=== PATIENT | female | born 2000 | race Caucasian/White ===

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

== ENCOUNTER 2018-08-07 09:19 | Emergency (ER) | payer OTHER, MEDICAID ==
[2018-08-07 10:46] VITALS: BP 118/69
--- NOTE | 2018-08-07 11:05 | EDM.PDOC ---
ED HPI GENERAL MEDICAL PROBLEM - General Chief Complaint: Respiratory Problem Stated Complaint: CONGESTED, BODY ACHES Time Seen by Provider: 08/07/18 10:50 Source of Information: Reports: Patient History Limitations: Reports: No Limitations - History of Present Illness INITIAL COMMENTS - FREE TEXT/NARRATIVE: 17-year-old female who was had a cough for 2 weeks, now becoming productive with intermittent fevers and generalized body aches. She's also had increased nasal congestion and drainage over the past several days. No shortness of breath. She's had occasional vomiting from the coughing. Moderate headache. 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 Musculoskeletal History: Reports: Other (See Below) Other Musculoskeletal History: 3 broken bones in right foot Psychiatric History: Reports: Anxiety, Depression, Panic Attack Dermatologic History: Reports: Other (See Below) Other Dermatologic History: patches on upper arms of rash - Infectious Disease History Infectious Disease History: Reports: Chicken Pox - Past Surgical History HEENT Surgical History: Reports: Oral Surgery Cardiovascular Surgical History: Reports: None GI Surgical History: Reports: Appendectomy Female Surgical History: Reports: None Dermatological Surgical History: Reports: None Social & Family History - Family History Family Medical History: Noncontributory - Tobacco Use Smoking Status *Q: Current Every Day Smoker Years of Tobacco use: 8 Packs/Tins Daily: 1 Used Tobacco, but Quit: No Second Hand Smoke Exposure: Yes - Caffeine Use Caffeine Use: Reports: Energy Drinks - Alcohol Use Days Per Week of Alcohol Use: 0 - Recreational Drug Use Recreational Drug Use: No ED ROS GENERAL - Review of Systems Review Of Systems: See Below Constitutional: Reports: Fever, Chills, Malaise HEENT: Reports: Rhinitis, Throat Pain. Denies: Ear Pain Respiratory: Reports: Shortness of Breath, Cough, Sputum Cardiovascular: Reports: Chest Pain (With coughing) GI/Abdominal: Reports: Nausea, Vomiting Musculoskeletal: Reports: Muscle Pain Skin: Denies: Rash Neurological: Reports: Headache ED EXAM, GENERAL - Physical Exam Exam: See Below Exam Limited By: No Limitations General Appearance: Alert, No Apparent Distress Eye Exam: Bilateral Eye: EOMI Ears: Normal TMs (Scars from past tympanoplasty, no acute findings) Throat/Mouth: Normal Inspection Head: Atraumatic Neck: Other (Submandibular areas are tender to palpation but not swollen). No: Lymphadenopathy (R), Lymphadenopathy (L) Respiratory/Chest: No Respiratory Distress, Rhonchi (A few expiratory rhonchi wheezes are heard with coughing otherwise clear) Neurological: Alert, Oriented Psychiatric: Normal Affect, Normal Mood Skin Exam: Warm, Dry Course - Vital Signs Last Recorded V/S: Last Vital Signs Temp 97.3 F 08/07/18 10:46 Pulse 87 08/07/18 10:46 Resp 16 08/07/18 10:46 BP 118/69 08/07/18 10:46 Pulse Ox 100 08/07/18 10:46 - Re-Assessments/Exams Free Text/Narrative Re-Assessment/Exam: 08/07/18 11:04 This patient has a lingering bronchitis which may be turning atypical resident viral. Because of the 2-3 week history of symptoms she'll be covered for atypicals with Zithromax and given some Tessalon Perles for cough suppression. A note for work for today and tomorrow, rest and fluids and recheck in 3-4 days if not improving satisfactorily. Departure - Departure Time of Disposition: 11:17 Disposition: Home, Self-Care 01 Condition: Good Clinical Impression: Bronchitis - Discharge Information Instructions: Acute Bronchitis, Adult, [id number] Referrals: Guerita Muñoz CNM [Primary Care Provider] - Forms: ED Department Discharge Care Plan Goals: Take medications as prescribed, get rest and fluids for the next couple of days and increase activity as tolerated. Consider rechecking in 3-4 days if not improving satisfactorily.
== END 2018-08-07 11:18 | disposition home or self-care (01) ==
LOC: JP.ED 09:19
DX: J40 Bronchitis, not specified as acute or chronic (principal); F17.210 Nicotine dependence, cigarettes, uncomplicated; Z88.8 Allergy status to other drugs, medicaments and biological substances
CPT/HCPCS: 99283

== ENCOUNTER 2019-06-11 13:58 | Emergency (ER) | payer OTHER, MEDICAID ==
[2019-06-11 14:35] VITALS: BP 135/81; PULSE 113
--- NOTE | 2019-06-11 15:49 | EDM.PDOC ---
ED HPI GENERAL MEDICAL PROBLEM - General Chief Complaint: ALGOLOGIST Problem Stated Complaint: HEAVY MENSTRUEL BLEEDING Time Seen by Provider: 06/11/19 14:46 Source of Information: Reports: Patient History Limitations: Reports: No Limitations - History of Present Illness INITIAL COMMENTS - FREE TEXT/NARRATIVE: states she has had heavy bleeding for one year Off depo and had PIE[facility] WORK CHECKER visit in [place]; told she has ovarian cyst and it would resolve Hasn't followed up Still having bleeding No control; she states she can't be on it for other reasons. 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 Musculoskeletal History: Reports: Other (See Below) Other Musculoskeletal History: 3 broken bones in right foot Psychiatric History: Reports: Anxiety, Depression, Panic Attack Dermatologic History: Reports: Other (See Below) Other Dermatologic History: patches on upper arms of rash - Infectious Disease History Infectious Disease History: Reports: Chicken Pox - Past Surgical History HEENT Surgical History: Reports: Oral Surgery GI Surgical History: Reports: Appendectomy Social & Family History - Family History Family Medical History: Noncontributory - Tobacco Use Smoking Status *Q: Current Every Day Smoker Years of Tobacco use: 3 Packs/Tins Daily: 0.5 - Caffeine Use Caffeine Use: Reports: None - Recreational Drug Use Recreational Drug Use: Yes Recreational Drug Type: Reports: Marijuana/Hashish Recreational Drug Use Frequency: Socially ED ROS GENERAL - Review of Systems Review Of Systems: See Below Constitutional: Reports: Weakness, Other (lightheadedness on occasion) Respiratory: Reports: No Symptoms Cardiovascular: Reports: No Symptoms GI/Abdominal: Reports: Abdominal Pain Musculoskeletal: Reports: No Symptoms Skin: Reports: No Symptoms ED EXAM, GENERAL - Physical Exam Exam: See Below Exam Limited By: No Limitations General Appearance: Alert, WD/WN, No Apparent Distress Head: Atraumatic, Normocephalic Neck: Normal Inspection, Full Range of Motion Respiratory/Chest: Lungs Clear, Normal Breath Sounds Cardiovascular: Regular Rate, Rhythm GI/Abdominal: Normal Bowel Sounds, Soft, Non-Tender (Female) Exam: Vaginal Bleeding (as stated) Back Exam: Normal Inspection Extremities: Normal Inspection, Normal Range of Motion Neurological: Alert, Oriented, CN II-XII Intact Psychiatric: Normal Affect Skin Exam: Warm, Dry, Intact, Normal Color Course - Vital Signs Last Recorded V/S: Last Vital Signs Temp 96.8 F 06/11/19 14:41 Pulse 113 H 06/11/19 14:41 Resp 16 06/11/19 14:41 BP 135/81 06/11/19 14:41 Pulse Ox 100 06/11/19 14:41 - Orders/Labs/Meds Labs: Laboratory Tests 06/11/19 06/11/19 06/11/19 Range/Units 15:02 15:02 15:03 WBC 9.3 (4.5-11.0) K/uL RBC 4.97 (3.30-5.50) M/uL Hgb 15.0 (12.0-15.0) g/dL Hct 46.2 (36.0-48.0) % MCV 93 (80-98) fL MCH 30 (27-31) pg MCHC 33 (32-36) % Plt Count 233 (150-400) K/uL Neut % (Auto) 61 (36-66) % Lymph % (Auto) 23 L (24-44) % [place] % (Auto) 14 H (2-6) % Eos % (Auto) 1 L (2-4) % Baso % (Auto) 0 (0-1) % Sodium (140-148) mmol/L Potassium (3.6-5.2) mmol/L Chloride (100-108) mmol/L Carbon Dioxide (21-32) mmol/L Anion Gap (5.0-14.0) mmol/L BUN (7-18) mg/dL Creatinine (0.6-1.0) mg/dL Est Cr Clr Drug Dosing mL/min Estimated GFR (MDRD) (>60) Glucose (74-106) mg/dL Calcium (8.5-10.1) mg/dL Iron (50-170) ug/dL TIBC (250-450) ug/dl % Saturation (20-55) % Total Bilirubin (0.2-1.0) mg/dL AST (15-37) U/L ALT (12-78) U/L Alkaline Phosphatase (46-116) U/L Total Protein (6.4-8.2) g/dL Albumin (3.4-5.0) g/dL Globulin (2.3-3.5) g/dL Albumin/Globulin Ratio (1.2-2.2) Urine Color Red Urine Appearance Cloudy Urine pH 8.0 (4.5-8.0) Ur Specific [place] 1.015 (1.008-1.030) Urine Protein Trace (NEGATIVE) mg/dL Urine Glucose (UA) Normal (NEGATIVE) mg/dL Urine Ketones Negative (NEGATIVE) mg/dL Urine Occult Blood Large (NEGATIVE) Urine Nitrite Negative (NEGATIVE) Urine Bilirubin Negative (NEGATIVE) Urine Urobilinogen Normal (NORMAL) mg/dL Ur Leukocyte Esterase Trace (NEGATIVE) Urine RBC Packed H (0-5) Urine WBC 0-5 (0-5) Ur Epithelial Cells Moderate Amorphous Sediment Not seen Urine Bacteria Few Urine Mucus Not seen Urine HCG, Qual Negative 06/11/19 06/11/19 Range/Units 15:03 15:03 WBC (4.5-11.0) K/uL RBC (3.30-5.50) M/uL Hgb (12.0-15.0) g/dL Hct (36.0-48.0) % MCV (80-98) fL MCH (27-31) pg MCHC (32-36) % Plt Count (150-400) K/uL Neut % (Auto) (36-66) % Lymph % (Auto) (24-44) % [place] % (Auto) (2-6) % Eos % (Auto) (2-4) % Baso % (Auto) (0-1) % Sodium 139 L (140-148) mmol/L Potassium 3.9 (3.6-5.2) mmol/L Chloride 103 (100-108) mmol/L Carbon Dioxide 27 (21-32) mmol/L Anion Gap 12.9 (5.0-14.0) mmol/L BUN 12 (7-18) mg/dL Creatinine 0.8 (0.6-1.0) mg/dL Est Cr Clr Drug Dosing 96.86 mL/min Estimated GFR (MDRD) > 60 (>60) Glucose 86 (74-106) mg/dL Calcium 9.5 (8.5-10.1) mg/dL Iron 83 (50-170) ug/dL TIBC 419 (250-450) ug/dl % Saturation 20 (20-55) % Total Bilirubin 0.6 (0.2-1.0) mg/dL AST 27 (15-37) U/L ALT 40 D (12-78) U/L Alkaline Phosphatase 144 H (46-116) U/L Total Protein 7.8 (6.4-8.2) g/dL Albumin 3.9 (3.4-5.0) g/dL Globulin 3.9 H (2.3-3.5) g/dL Albumin/Globulin Ratio 1.0 L (1.2-2.2) Urine Color Urine Appearance Urine pH (4.5-8.0) Ur Specific [place] (1.008-1.030) Urine Protein (NEGATIVE) mg/dL Urine Glucose (UA) (NEGATIVE) mg/dL Urine Ketones (NEGATIVE) mg/dL Urine Occult Blood (NEGATIVE) Urine Nitrite (NEGATIVE) Urine Bilirubin (NEGATIVE) Urine Urobilinogen (NORMAL) mg/dL Ur Leukocyte Esterase (NEGATIVE) Urine RBC (0-5) Urine WBC (0-5) Ur Epithelial Cells Amorphous Sediment Urine Bacteria Urine Mucus Urine HCG, Qual - Re-Assessments/Exams Free Text/Narrative Re-Assessment/Exam: 06/11/19 15:58 Reviewed lab with patient She is resting comfortably Recheck of pulse, 86. Discussed with her I would recommend she Follow up with [employer] She is requesting a referral to [place] because "everyone is giving her the run around". Understand her frustration; referral was placed. Departure - Departure Time of Disposition: 15:46 Disposition: Home, Self-Care 01 Condition: Good Clinical Impression: Vaginal bleeding - Discharge Information *PRESCRIPTION DRUG MONITORING PROGRAM REVIEWED*: Not Applicable *COPY OF PRESCRIPTION DRUG MONITORING REPORT IN PATIENT EMILY: Not Applicable Instructions: Dysmenorrhea, [id number], Dysfunctional Uterine Bleeding Referrals: Guerita Muñoz CNM [Primary Care Provider] - Forms: ED Department Discharge Additional Instructions: Someone will call you from [facility] for follow up /appt schedule for OBGYN Change positions slowly Drink plenty of water. Call with questions. - Problem List & Annotations (1) Vaginal bleeding SNOMED Code(s): 413950264, [id number] Code(s): N93.9 - ABNORMAL UTERINE AND VAGINAL BLEEDING, UNSPECIFIED Status : Acute Priority: Low
== END 2019-06-11 16:04 | disposition home or self-care (01) ==
LOC: JP.ED 13:58
DX: N93.9 Abnormal uterine and vaginal bleeding, unspecified (principal); R42 Dizziness and giddiness; R53.1 Weakness; F17.210 Nicotine dependence, cigarettes, uncomplicated; Z88.1 Allergy status to other antibiotic agents
CPT/HCPCS: 36415; 80053; 81001; 81025; 83550; 85025; 99283; 99284

== ENCOUNTER 2020-06-04 17:05 | Emergency (ER) | payer MEDICAID, OTHER ==
[2020-06-04] MEDS ORDERED: hydrOXYzine HCL 100 MG/2 ML SDV IM ONE (17:37)
--- NOTE | 2020-06-04 17:39 | EDM.PDOC ---
ED HPI GENERAL MEDICAL PROBLEM - General Chief Complaint: Bite:Animal, Insect Stated Complaint: STUNG BY HORNETS Time Seen by Provider: 06/04/20 17:25 Source of Information: Reports: Patient, Old Records, RN History Limitations: Reports: No Limitations - History of Present Illness INITIAL COMMENTS - FREE TEXT/NARRATIVE: 19 yo female presents with a reported 40 stings by hornets earlier today. Feels itchy all over. Drove herself to the ER. No self tx. No pHx of bee sting allergy. Onset: Today, Sudden Onset Date: 06/04/20 Duration: Minutes: Location: Reports: Abdomen, Back, Lower Extremity, Left, Lower Extremity, Right Quality: Reports: Other (itching) Severity: Moderate Improves with: Reports: None Worsens with: Reports: None Context: Reports: Trauma (multiple bee stings) Associated Symptoms: Reports: No Other Symptoms Treatments JAVA DEVELOPER: Reports: Other (see below) (none) - Related Data Allergies Allergy/AdvReac Type Severity Reaction Status Date / Time neomycin Allergy Swelling Verified 06/04/20 17:24 Home Meds: Home Meds NK [No Known Home Meds] 06/11/19 [History] Past Medical History HEENT History: Reports: Impaired Vision Cardiovascular History: Reports: Heart Murmur Gastrointestinal History: Reports: GERD Genitourinary History: Reports: UTI, Recurrent 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 Musculoskeletal History: Reports: Other (See Below) Other Musculoskeletal History: 3 broken bones in right foot Psychiatric History: Reports: Anxiety, Depression, Panic Attack Dermatologic History: Reports: Other (See Below) Other Dermatologic History: patches on upper arms of rash - Infectious Disease History Infectious Disease History: Reports: Chicken Pox - Past Surgical History Head Surgeries/Procedures: Reports: None HEENT Surgical History: Reports: Oral Surgery Cardiovascular Surgical History: Reports: None GI Surgical History: Reports: Appendectomy Female Surgical History: Reports: None Musculoskeletal Surgical History: Reports: None Dermatological Surgical History: Reports: None Social & Family History - Family History Family Medical History: Noncontributory - Tobacco Use Smoking Status *Q: Current Every Day Smoker Years of Tobacco use: 10 Packs/Tins Daily: 0.5 Used Tobacco, but Quit: No Second Hand Smoke Exposure: No - Caffeine Use Caffeine Use: Reports: None - Recreational Drug Use Recreational Drug Use: No ED ROS GENERAL - Review of Systems Review Of Systems: See Below Constitutional: Reports: No Symptoms HEENT: Reports: No Symptoms Respiratory: Reports: No Symptoms Cardiovascular: Reports: No Symptoms Endocrine: Reports: No Symptoms GI/Abdominal: Reports: No Symptoms : Reports: No Symptoms Musculoskeletal: Reports: No Symptoms Skin: Reports: Pruritis, Erythema. Denies: Urticaria Neurological: Reports: No Symptoms ED EXAM, ANIMAL BITE - Physical Exam Exam: See Below Exam Limited By: No Limitations General Appearance: Alert, WD/WN, No Apparent Distress Eye Exam: Bilateral Eye: Normal Inspection Ears: Normal External Exam, Normal Canal, Hearing Grossly Normal, Normal TMs Nose: Normal Inspection, No Blood Throat/Mouth: Normal Inspection, Normal Lips, Normal Oropharynx, Normal Voice, No Airway Compromise Head: Atraumatic, Normocephalic Neck: Normal Inspection Respiratory/Chest: No Respiratory Distress, Lungs Clear, Normal Breath Sounds, No Accessory Muscle Use Cardiovascular: Regular Rate, Rhythm, No Edema, Tachycardia Extremities: Normal Inspection Neurological: Alert, Oriented, CN II-XII Intact, Normal Cognition, No Motor/Sensory Deficits Psychiatric: Normal Affect, Normal Mood Skin Exam: Normal Color, Warm/Dry, Other (some mild erythema, no hives or induration noted. ) Lymphadenopathy: Bilateral: No Adenopathy Course - Vital Signs Last Recorded V/S: Last Vital Signs Temp 37.1 C 06/04/20 17:44 Pulse 113 H 06/04/20 17:44 Resp 16 06/04/20 17:44 BP 117/75 06/04/20 17:44 Pulse Ox 96 06/04/20 17:44 - Orders/Labs/Meds Meds: Medications Discontinued Medications Generic Name Dose Route Start Last Admin Trade Name Freq PRN Reason Stop Dose Admin Hydroxyzine HCl 50 mg 06/04/20 17:37 06/04/20 17:43 Vistaril IM 06/04/20 17:38 50 mg ONETIME ONE Administration Departure - Departure Time of Disposition: 18:20 Disposition: Home, Self-Care 01 Condition: Good Clinical Impression: Bee sting Qualifiers: Encounter type: initial encounter Injury intent: undetermined intent Qualified Code(s): T63.444A - Toxic effect of venom of bees, undetermined, initial encounter - Discharge Information *PRESCRIPTION DRUG MONITORING PROGRAM REVIEWED*: Not Applicable *COPY OF PRESCRIPTION DRUG MONITORING REPORT IN PATIENT EMILY: Not Applicable Instructions: Insect Bite, Adult, [id number] Referrals: PCP,None [Primary Care Provider] - Forms: ED Department Discharge Additional Instructions: Take diphenhydramine 50 mg every 6 hrs as needed for continued symptoms. Recheck if worse. Sepsis Event Note (ED) - Focused Exam Vital Signs: Vital Signs Temp Pulse Resp BP Pulse Ox 06/04/20 17:44 37.1 C 113 H 16 117/75 96
[2020-06-04 17:45] VITALS: BP 117/75; PULSE 113
== END 2020-06-04 18:04 | disposition home or self-care (01) ==
LOC: JP.ED 17:05
DX: T63.441A Toxic effect of venom of bees, accidental (unintentional), initial encounter (principal); F17.210 Nicotine dependence, cigarettes, uncomplicated; Z88.1 Allergy status to other antibiotic agents
CPT/HCPCS: 96372; 99282; J3410

== ENCOUNTER 2020-09-18 09:02 | Emergency (ER) | payer SELFPAY ==
[2020-09-18 09:28] VITALS: BP 107/72; PULSE 87
--- NOTE | 2020-09-18 10:08 | EDM.PDOC ---
ED HPI GENERAL MEDICAL PROBLEM - General Chief Complaint: Lower Extremity Injury/Pain Stated Complaint: INFECTION ON RIGHT FOOT Time Seen by Provider: 09/18/20 10:04 Source of Information: Reports: Patient History Limitations: Reports: Other (incomplete records) - History of Present Illness INITIAL COMMENTS - FREE TEXT/NARRATIVE: 20 yo female was see in [facility] about 3 weeks ago after possibly being impaled by a toothpick in her carpet. She was given an antibiotic and told if she didn't improve to come to the ER. She says she has very slowly been getting worse since then. Had TMP/SMZ for her infection earlier. Onset: Gradual Onset Date: 08/28/20 Duration: Week(s): (3), Getting Worse Location: Reports: Lower Extremity, Right Quality: Reports: Dull Severity: Mild Improves with: Reports: None Worsens with: Reports: Other (time) Context: Reports: Trauma Associated Symptoms: Reports: No Other Symptoms Treatments DIPPER OPERATOR: Reports: Other (see below) ("an antibiotic") - Related Data Allergies Allergy/AdvReac Type Severity Reaction Status Date / Time neomycin Allergy Swelling Verified 06/04/20 17:24 Home Meds: Home Meds cephALEXin [Cephalexin] 500 mg PO Q6H #40 capsule 09/18/20 [Rx] Past Medical History HEENT History: Reports: Impaired Vision Cardiovascular History: Reports: Heart Murmur Gastrointestinal History: Reports: GERD Genitourinary History: Reports: UTI, Recurrent 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 CLERK History: Reports: 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 Musculoskeletal History: Reports: Other (See Below) Other Musculoskeletal History: 3 broken bones in right foot Psychiatric History: Reports: Anxiety, Depression, Panic Attack Dermatologic History: Reports: Other (See Below) Other Dermatologic History: patches on upper arms of rash - Infectious Disease History Infectious Disease History: Reports: Chicken Pox - Past Surgical History Head Surgeries/Procedures: Reports: None HEENT Surgical History: Reports: Oral Surgery Cardiovascular Surgical History: Reports: None GI Surgical History: Reports: Appendectomy Female Surgical History: Reports: None Musculoskeletal Surgical History: Reports: None Dermatological Surgical History: Reports: None Social & Family History - Family History Family Medical History: No Pertinent Family History - Caffeine Use Caffeine Use: Reports: None Review of Systems - Review of Systems Review Of Systems: See Below Constitutional: Reports: No Symptoms Musculoskeletal: Reports: Foot Pain (R foot) Skin: Reports: Erythema (R lateral foot) Neurological: Reports: No Symptoms ED EXAM, GENERAL - Physical Exam Exam: See Below Exam Limited By: No Limitations General Appearance: Alert, WD/WN, No Apparent Distress Eye Exam: Bilateral Eye: Normal Inspection Ears: Normal External Exam, Normal Canal, Hearing Grossly Normal Nose: Normal Inspection, No Blood Throat/Mouth: Normal Voice, No Airway Compromise Head: Atraumatic, Normocephalic Neck: Normal Inspection Respiratory/Chest: No Respiratory Distress Extremities: Redness (and induration laterally) Neurological: Alert, Oriented, CN II-XII Intact, Normal Cognition, No Motor/Sensory Deficits Psychiatric: Normal Affect, Normal Mood Skin Exam: Warm, Dry, Intact, No Rash, Erythema (R lateral foot) Course - Vital Signs Last Recorded V/S: Last Vital Signs Temp 36.7 C 09/18/20 09:10 Pulse 87 09/18/20 09:10 Resp 16 09/18/20 09:10 BP 107/72 09/18/20 09:10 Pulse Ox 98 09/18/20 09:10 - Radiology Interpretation Free Text/Narrative:: R foot X-ray-neg Departure - Departure Time of Disposition: 11:00 Disposition: Home, Self-Care 01 Condition: Fair Clinical Impression: Right foot infection - Discharge Information *PRESCRIPTION DRUG MONITORING PROGRAM REVIEWED*: No *COPY OF PRESCRIPTION DRUG MONITORING REPORT IN PATIENT EMILY: No Referrals: PCP,None [Primary Care Provider] - Forms: ED Department Discharge Additional Instructions: Heel walking. Soak foot in warm water several times per day. Acetaminophen up to 1000 mg every 6 hrs as needed for pain relief. Take cephalexin every 6 hrs starting right away, your Rx went to [facility]. Someone will be calling you with a podiatry appt soon for further evaluation and treatment. Sepsis Event Note (ED) - Focused Exam Vital Signs: Vital Signs Temp Pulse Resp BP Pulse Ox 09/18/20 09:10 36.7 C 87 16 107/72 98
--- NOTE | 2020-09-18 10:37 | CR ---
FOOT RIGHT 3 views CLINICAL HISTORY:Question foreign body FINDINGS:There is some soft tissue swelling over the lateral aspect of the fifth metatarsal region. No radiopaque foreign body is identified there is no fracture or osseous lesion seen. Impression: Negative for radiopaque foreign body Mild soft tissue swelling over the lateral forefoot
== END 2020-09-18 11:45 | disposition home or self-care (01) ==
LOC: JP.ED 09:02
DX: L08.9 Local infection of the skin and subcutaneous tissue, unspecified (principal); Z88.1 Allergy status to other antibiotic agents
CPT/HCPCS: 73630-26-RT; 73630-RT; 99283-25

== ENCOUNTER 2021-07-21 06:59 | Observation (INO) | payer MEDICAID ==
[2021-07-21] MEDS ORDERED: Misoprostol 50 MCG (1/2 of 100 MCG) Tab VAG ONE ×2 (07:15→12:00)
--- NOTE | 2021-07-21 08:23 | PCM.LDHP ---
L&D History of Present Illness - General Date of Service: 07/21/21 (Elective Induction/cervical ripening) Admit Problem/Dx: Admission Diagnosis/Problem Admission Diagnosis/Problem Source of Information: Patient History Limitations: Reports: No Limitations - History of Present Illness Introduction:: 07/21/21 Alexandra is a 20 year old female at 39 weeks 2 days gestation. She is a here for elective induction/cevical ripening. Her medical history includes smoking, history of chlamydia, and depression and anxiety. This has included adequate care and she was diagnosed with COVID 19 on July 07. Labs: ABO: 0pos GBS: neg Rub immune Positive COVID since 07/07/21 Timing/Duration: Reports: other (no contractions) - Related Data Allergies/Adverse Reactions: Allergies Allergy/AdvReac Type Severity Reaction Status Date / Time neomycin Allergy Swelling Verified 07/21/21 07:08 Home Medications: Home Meds Pnv No.95/Ferrous Fum/Folic AC [ Caplet] 1 tab PO DAILY 06/12/21 [History] Omeprazole 20 mg PO ACBREAKFAST 07/21/21 [History] valACYclovir HCl [valACYclovir] 1,000 mg PO DAILY 07/21/21 [History] Past Medical History HEENT History: Reports: Impaired Vision Cardiovascular History: Reports: Heart Murmur Gastrointestinal History: Reports: GERD Genitourinary History: Reports: UTI, Recurrent 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: , Spontaneous : 3 (2 SAB) Para: 0 LMP (Approximate): (SUSI: 07/26/21) Musculoskeletal History: Reports: Other (See Below) Other Musculoskeletal History: 3 broken bones in right foot Psychiatric History: Reports: Anxiety, Depression, Panic Attack Hematologic History: Reports: None Dermatologic History: Reports: Other (See Below) Other Dermatologic History: patches on upper arms of rash - Infectious Disease History Infectious Disease History: Reports: Chicken Pox - Past Surgical History Head Surgeries/Procedures: Reports: None HEENT Surgical History: Reports: Oral Surgery Cardiovascular Surgical History: Reports: None GI Surgical History: Reports: Appendectomy Female Surgical History: Reports: None Musculoskeletal Surgical History: Reports: None Other Musculoskeletal Surgeries/Procedures:: broken bones in foot Dermatological Surgical History: Reports: None Social & Family History - Family History Family Medical History: No Pertinent Family History - Caffeine Use Caffeine Use: Reports: None H&P Review of Systems - Review of Systems: Review Of Systems: See Below General: Reports: No Symptoms HEENT: Reports: No Symptoms Pulmonary: Reports: No Symptoms Cardiovascular: Reports: No Symptoms Gastrointestinal: Reports: No Symptoms Genitourinary: Reports: No Symptoms Musculoskeletal: Reports: No Symptoms Skin: Reports: No Symptoms Psychiatric: Reports: No Symptoms Neurological: Reports: No Symptoms Hematologic/Lymphatic: Reports: No Symptoms Immunologic: Reports: No Symptoms L&D Exam - Exam Exam: See Below - Vital Signs Vital Signs: Last Vital Signs Temp 97.1 F 07/21/21 07:15 Pulse 114 H 07/21/21 07:15 Resp 18 07/21/21 07:15 BP 127/79 07/21/21 07:15 Pulse Ox 97 07/21/21 07:15 - OB Specific Contraction Intensity: Mild Movement: Active Heart Tones: Present Heart Tones per Min: 140 Heart Rate (FHR) Variability: Moderate (6-25 bpm) Presentation: Vertex Estimated Weight: 7-8lbs - Mcclain Score Mcclain Score Cervix Position: Midposition Mcclain Score Consistency: Soft Mcclain Score Effacement: 31-50% Mcclain Score Dilation: 1-2 cm Mcclain Score Infant's Station: -2 Mcclain Score Total: 6 - Exam General: Alert, Oriented HEENT: PERRLA, Conjunctiva Clear, EOMI, Hearing Intact, Mucosa Moist & [place], Nares Patent Neck: Supple, Trachea Midline Lungs: Normal Respiratory Effort Cardiovascular: Regular Rate, Regular Rhythm GI/Abdominal Exam: Soft Rectal Exam: Normal Rectal Tone Genitourinary: Normal external exam, Cervical dilitation, Enlarged uterus Back Exam: Full Range of Motion Extremities: Normal Inspection, Normal Range of Motion, No Pedal Edema Skin: Warm, Dry, Intact Neurological: Cranial Nerves Intact Psychiatric: Alert, Normal Affect, Normal Mood - Patient Data Lab Results Last 24 hrs: Laboratory Results - last 24 hr 07/21/21 07/21/21 07/21/21 Range/Units 07:16 07:18 07:18 WBC 11.2 H (4.5-11.0) K/uL RBC 4.17 (3.30-5.50) M/uL Hgb 12.3 D (12.0-15.0) g/dL Hct 36.8 (36.0-48.0) % MCV 88 (80-98) fL MCH 30 (27-31) pg MCHC 33 (32-36) % Plt Count 248 (150-400) K/uL Neut % (Auto) 67.6 H (36-66) % Lymph % (Auto) 25.2 (24-44) % Dent % (Auto) 6.1 H (2-6) % Eos % (Auto) 0.7 L (2-4) % Baso % (Auto) 0.4 (0-1) % Urine Color Yellow (YELLOW) Urine Appearance Cloudy A (CLEAR) Urine pH 6.0 (5.0-8.0) Ur Specific [place] >= 1.030 (1.008-1.030) Urine Protein Negative (NEGATIVE) mg/dL Urine Glucose (UA) Negative (NEGATIVE) mg/dL Urine Ketones Negative (NEGATIVE) mg/dL Urine Occult Blood Negative (NEGATIVE) Urine Nitrite Negative (NEGATIVE) Urine Bilirubin Negative (NEGATIVE) Urine Urobilinogen 0.2 (0.2-1.0) EU/dL Ur Leukocyte Esterase Negative (NEGATIVE) Urine RBC 0-5 (0-5) Urine WBC Not seen (0-5) Ur Epithelial Cells Many Amorphous Sediment Rare Urine Bacteria Many Urine Mucus Many Urine Opiates Screen Negative (NEGATIVE) Ur Oxycodone Screen Negative (NEGATIVE) Urine Methadone Screen Negative (NEGATIVE) Ur Propoxyphene Screen Negative (NEGATIVE) Ur Barbiturates Screen Negative (NEGATIVE) Ur Tricyclics Screen Negative (NEGATIVE) Ur Phencyclidine Scrn Negative (NEGATIVE) Ur Amphetamine Screen Negative (NEGATIVE) U Methamphetamines Scrn Negative (NEGATIVE) Urine MDMA Screen Negative (NEGATIVE) U Benzodiazepines Scrn Negative (NEGATIVE) U Cocaine Metab Screen Negative (NEGATIVE) U Marijuana (THC) Screen Negative (NEGATIVE) SARS CoV-2 RNA Rapid BECCA 07/21/21 Range/Units 07:39 WBC (4.5-11.0) K/uL RBC (3.30-5.50) M/uL Hgb (12.0-15.0) g/dL Hct (36.0-48.0) % MCV (80-98) fL MCH (27-31) pg MCHC (32-36) % Plt Count (150-400) K/uL Neut % (Auto) (36-66) % Lymph % (Auto) (24-44) % Dent % (Auto) (2-6) % Eos % (Auto) (2-4) % Baso % (Auto) (0-1) % Urine Color (YELLOW) Urine Appearance (CLEAR) Urine pH (5.0-8.0) Ur Specific [place] (1.008-1.030) Urine Protein (NEGATIVE) mg/dL Urine Glucose (UA) (NEGATIVE) mg/dL Urine Ketones (NEGATIVE) mg/dL Urine Occult Blood (NEGATIVE) Urine Nitrite (NEGATIVE) Urine Bilirubin (NEGATIVE) Urine Urobilinogen (0.2-1.0) EU/dL Ur Leukocyte Esterase (NEGATIVE) Urine RBC (0-5) Urine WBC (0-5) Ur Epithelial Cells Amorphous Sediment Urine Bacteria Urine Mucus Urine Opiates Screen (NEGATIVE) Ur Oxycodone Screen (NEGATIVE) Urine Methadone Screen (NEGATIVE) Ur Propoxyphene Screen (NEGATIVE) Ur Barbiturates Screen (NEGATIVE) Ur Tricyclics Screen (NEGATIVE) Ur Phencyclidine Scrn (NEGATIVE) Ur Amphetamine Screen (NEGATIVE) U Methamphetamines Scrn (NEGATIVE) Urine MDMA Screen (NEGATIVE) U Benzodiazepines Scrn (NEGATIVE) U Cocaine Metab Screen (NEGATIVE) U Marijuana (THC) Screen (NEGATIVE) SARS CoV-2 RNA Rapid BECCA Positive H Result Diagrams: 07/21/21 07:16 - Problem List (1) Elective induction of labor planned SNOMED Code(s): 000656271 ICD Code: AVA5360 - Status: Acute Current Visit: Yes (2) Tobacco consumption SNOMED Code(s): 462364826 ICD Code: Z72.0 - TOBACCO USE Status: Acute Current Visit: Yes (3) SNOMED Code(s): 29891688 ICD Code: Z34.90 - ENCNTR FOR SUPRVSN OF NORMAL , UNSP, UNSP TRIMESTER Status: Acute Current Visit: Yes Qualifiers: Weeks of gestation: 39 weeks Qualified Code(s): Z3A.39 - 39 weeks gestation of (4) COVID-19 affecting in third trimester SNOMED Code(s): 023086056, 591690235 ICD Code: O98.513 - OTHER VIRAL DISEASES COMPLICATING , THIRD TRIMESTER; U07.1 - COVID-19 Status: Acute Current Visit: Yes Problem List Initiated/Reviewed/Updated: Yes Assessment/Plan Comment:: 07/21/21 Assessment: 20y/o 39w 2 days here for elective induction 2 weeks post COVID infection, feels well overall today Mcclain score of 6 Category 1 FHT, no contractions Platelets 248 this am and hemoglobin 12.3 GBS status is negative Plan: Cytotec vaginally X2 doses Continue to monitor FHT Encourage oral hydration and nutrition Encourage ambulation and movement Reassess mcclain score after cytotec doses
[2021-07-21] MEDS ORDERED: Sodium Chloride 0.9% 10 ML Syringe FLUSH PRN (08:35)
--- NOTE | 2021-07-21 12:38 | PCM.PNLD ---
Labor Progress Note - VS & Meds Vital Signs: Last Vital Signs Temp 97.1 F 07/21/21 07:15 Pulse 91 07/21/21 10:18 Resp 18 07/21/21 07:15 BP 127/68 07/21/21 10:18 Pulse Ox 96 07/21/21 09:11 Active Medications: Current Medications Sodium Chloride (Sodium Chloride 0.9% 10 Ml Syringe) 10 ml FLUSH ASDIRECTED PRN PRN Reason: Keep Vein Open Discontinued Medications Misoprostol (Misoprostol 50 Mcg (1/2 Of 100 Mcg) Tab) 50 mcg VAG ONETIME ONE Stop: 07/21/21 07:16 Last Admin: 07/21/21 08:08 Dose: 50 mcg Documented by: Misoprostol (Misoprostol 50 Mcg (1/2 Of 100 Mcg) Tab) 50 mcg VAG ONETIME ONE Stop: 07/21/21 12:01 Last Admin: 07/21/21 12:21 Dose: 50 mcg Documented by: - Uterine Contractions Uterine Monitoring Mode: External [place] Contraction Frequency (min): 3 - 6 Contraction Duration (sec): 45 -80 Contraction Intensity: Mild Uterine Resting Tone: Soft - Monitoring Monitor Mode: External Ultrasound Heart Rate (FHR) Baseline: 145 Heart Rate (FHR) Variability: Moderate (6-25 bpm) Accelerations: Present, 15x15 Decelerations: None Strip Review: Category I - Vaginal Exam Dilation (cm): 0.5 Effacement (Percent): 50 Station: -2 Cervical Position: Posterior Sterile Vaginal Exam Performed By: Guerita Muñoz RN Vaginal Exam Comment: cytotec placed - Labor Progress (Free Text) Labor Progress: 07/21/21 Alexandra is due for a second dose of cytotec at this time. SVE for 0.5/50/-2. EFM shows a Category 1 tracing with occasional contractions without pattern. The pt is somewhat aware of these contractions and is comfortable. Plan: Monitor for active labor Reassess at 4:30/5pm If no cervical change, d/c to home and return another day.
[2021-07-21] MEDS ORDERED: Lactated Ringers 1,000 ML IV ONE ×2 (13:42→15:38)
--- NOTE | 2021-07-21 15:26 | US ---
BPP wo NST INDICATION: induction COMPARISON: None FINDINGS: Single live IUP heart rate: 149 BPM. Biophysical profile score: 6/8. A score of 0 was given for no gross body movements JUSTINE: 13.1 cm. IMPRESSION: Normal biophysical profile score of 6/8. There are no gross body movements
[2021-07-21] MEDS ORDERED: hydrOXYzine HCL 100 MG/2 ML SDV IM ONE (17:07)
--- NOTE | 2021-07-21 18:22 | PCM.PNLD ---
<Meera Vega - Last Filed: 07/21/21 18:16> Labor Progress Note - VS & Meds Vital Signs: Last Vital Signs Temp 97.1 F 07/21/21 12:30 Pulse 63 07/21/21 17:00 Resp 18 07/21/21 12:30 BP 137/92 H 07/21/21 17:00 Pulse Ox 97 07/21/21 16:59 Active Medications: Current Medications Sodium Chloride (Sodium Chloride 0.9% 10 Ml Syringe) 10 ml FLUSH ASDIRECTED PRN PRN Reason: Keep Vein Open Discontinued Medications Hydroxyzine HCl (Hydroxyzine Hcl 100 Mg/2 Ml Sdv) 100 mg IM ONETIME ONE Stop: 07/21/21 17:08 Last Admin: 07/21/21 17:23 Dose: 100 mg Documented by: Lactated Ringer's (Ringers, Lactated) 1,000 mls @ 999 mls/hr IV BOLUS ONE Stop: 07/21/21 14:42 Last Admin: 07/21/21 13:45 Dose: 999 mls/hr Documented by: Lactated Ringer's (Ringers, Lactated) 1,000 mls @ 999 mls/hr IV BOLUS ONE Stop: 07/21/21 16:38 Misoprostol (Misoprostol 50 Mcg (1/2 Of 100 Mcg) Tab) 50 mcg VAG ONETIME ONE Stop: 07/21/21 07:16 Last Admin: 07/21/21 08:08 Dose: 50 mcg Documented by: Misoprostol (Misoprostol 50 Mcg (1/2 Of 100 Mcg) Tab) 50 mcg VAG ONETIME ONE Stop: 07/21/21 12:01 Last Admin: 07/21/21 12:21 Dose: 50 mcg Documented by: - Uterine Contractions Uterine Monitoring Mode: External [place] Contraction Frequency (min): 1 - 2 Contraction Duration (sec): 30-70 Contraction Intensity: Tachysystole (at time of discharge, ctx have spaced to 2- 6min) Uterine Resting Tone: Soft - Monitoring Monitor Mode: External Ultrasound Heart Rate (FHR) Baseline: 150 Heart Rate (FHR) Variability: Moderate (6-25 bpm) Accelerations: Present, 15x15 Decelerations: None Strip Review: Category I - Vaginal Exam Dilation (cm): 1.0 Effacement (Percent): 70 Station: -2 Cervical Position: Midposition Sterile Vaginal Exam Performed By: charisma Moonife student Vaginal Exam Comment: no cervical change per CR - Labor Progress (Free Text) Labor Progress: 07/21/21 Alexandra is feeling her contractions more at this point, and EFM showed tachysystole for a period this afternoon. With a fluid bolus and vistaril, her contractions have spaced to every 2-6min. EFM is category 1. Her SVE is unchanged and she complains of some vaginal irritation, likely from cytotec and vaginal exams. UA was normal on admission. Assessment: Unchanged cervix after cervical ripening Category 1 EFM Plan: Vistaril to encourage rest at home with occasional contractions Plan to d/c home to rest Plan to return for eval and induction on 07/23/21 <Guerita Muñoz A - Last Filed: 07/21/21 18:46> Labor Progress Note - VS & Meds Vital Signs: Last Vital Signs Temp 97.1 F 07/21/21 12:30 Pulse 75 07/21/21 17:48 Resp 18 07/21/21 12:30 BP 132/88 07/21/21 17:48 Pulse Ox 97 07/21/21 16:59 Active Medications: Current Medications Sodium Chloride (Sodium Chloride 0.9% 10 Ml Syringe) 10 ml FLUSH ASDIRECTED PRN PRN Reason: Keep Vein Open Discontinued Medications Hydroxyzine HCl (Hydroxyzine Hcl 100 Mg/2 Ml Sdv) 100 mg IM ONETIME ONE Stop: 07/21/21 17:08 Last Admin: 07/21/21 17:23 Dose: 100 mg Documented by: Lactated Ringer's (Ringers, Lactated) 1,000 mls @ 999 mls/hr IV BOLUS ONE Stop: 07/21/21 14:42 Last Admin: 07/21/21 13:45 Dose: 999 mls/hr Documented by: Lactated Ringer's (Ringers, Lactated) 1,000 mls @ 999 mls/hr IV BOLUS ONE Stop: 07/21/21 16:38 Misoprostol (Misoprostol 50 Mcg (1/2 Of 100 Mcg) Tab) 50 mcg VAG ONETIME ONE Stop: 07/21/21 07:16 Last Admin: 07/21/21 08:08 Dose: 50 mcg Documented by: Misoprostol (Misoprostol 50 Mcg (1/2 Of 100 Mcg) Tab) 50 mcg VAG ONETIME ONE Stop: 07/21/21 12:01 Last Admin: 07/21/21 12:21 Dose: 50 mcg Documented by: - Labor Progress (Free Text) Labor Progress: I personally performed or re-performed the physical examination and medical decision making. I have verified all student documentation or findings, including history, physical exam and/or medical decision making. Guerita Muñoz APRN, CNM CFNP
[2021-07-21 18:23] VITALS: BP 132/88; PULSE 75
== END 2021-07-21 18:30 | disposition home or self-care (01) ==
LOC: JP.OBCHECK 06:59 → JP.OB 07:03 → JP.OBCHECK 08:10
PROVIDERS: ADMIT Nurse Practitioner Family; ATTEND Nurse Practitioner Family
DX: O98.513 Other viral diseases complicating pregnancy, third trimester (principal); U07.1 COVID-19; Z3A.39 39 weeks gestation of pregnancy
CPT/HCPCS: 36415; 76819; 80305; 81001; 85025; 87635; 96372; A9270; G0378; J3410; J7120; U0002

== ENCOUNTER 2021-07-22 09:12 | Inpatient (IN) | payer MEDICAID ==
[2021-07-22] MEDS ORDERED: Sodium Chloride 0.9% 10 ML Syringe FLUSH PRN (09:58)
--- NOTE | 2021-07-22 10:07 | PCM.LDHP ---
L&D History of Present Illness - General Date of Service: 07/22/21 (SROM at home) Admit Problem/Dx: Patient Status Order with Admit Dx/Problem 07/22/21 09:58 Patient Status [ADT] Routine Admission Diagnosis/Problem Admission Diagnosis/Problem Labor established Source of Information: Patient History Limitations: Reports: No Limitations - History of Present Illness Introduction:: 20 year old 39 3/7 weeks present swith SROM at home this morning. Clear fluid. Tony. cat one sdtrip contractions every 1-2 minutes GBS negative Pos FFT HIV neg Rubella immune Timing/Duration: Reports: minutes: (1-2) Location, : Reports: Abdomen Quality: Reports: Pressure Severity: Moderate Improves with: Reports: None Worsens with: Reports: None - Related Data Allergies/Adverse Reactions: Allergies Allergy/AdvReac Type Severity Reaction Status Date / Time neomycin Allergy Swelling Verified 07/21/21 07:08 Home Medications: Home Meds Pnv No.95/Ferrous Fum/Folic AC [ Caplet] 1 tab PO DAILY 06/12/21 [History] Omeprazole 20 mg PO ACBREAKFAST 07/21/21 [History] valACYclovir HCl [valACYclovir] 1,000 mg PO DAILY 07/21/21 [History] Past Medical History HEENT History: Reports: Impaired Vision Cardiovascular History: Reports: Heart Murmur Gastrointestinal History: Reports: GERD Genitourinary History: Reports: UTI, 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: , 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 : 3 Para: 0 LMP (Approximate): (39 3/7) Musculoskeletal History: Reports: Other (See Below) Other Musculoskeletal History: 3 broken bones in right foot Psychiatric History: Reports: Anxiety, Depression, Panic Attack Hematologic History: Reports: None Dermatologic History: Reports: Other (See Below) Other Dermatologic History: patches on upper arms of rash - Infectious Disease History Infectious Disease History: Reports: Chicken Pox - Past Surgical History Head Surgeries/Procedures: Reports: None HEENT Surgical History: Reports: Oral Surgery Cardiovascular Surgical History: Reports: None GI Surgical History: Reports: Appendectomy Female Surgical History: Reports: None Musculoskeletal Surgical History: Reports: None Other Musculoskeletal Surgeries/Procedures:: broken bones in foot Dermatological Surgical History: Reports: None Social & Family History - Family History Family Medical History: No Pertinent Family History - Caffeine Use Caffeine Use: Reports: None H&P Review of Systems - Review of Systems: Review Of Systems: See Below General: Reports: No Symptoms HEENT: Reports: No Symptoms Pulmonary: Reports: No Symptoms Cardiovascular: Reports: No Symptoms Gastrointestinal: Reports: No Symptoms Genitourinary: Reports: No Symptoms Musculoskeletal: Reports: No Symptoms Skin: Reports: No Symptoms Psychiatric: Reports: No Symptoms Neurological: Reports: No Symptoms Hematologic/Lymphatic: Reports: No Symptoms Immunologic: Reports: No Symptoms L&D Exam - Exam Exam: See Below - OB Specific Contraction Intensity: Mild Movement: Active Heart Tones: Present Heart Rate (FHR) Variability: Moderate (6-25 bpm) Presentation: Vertex Estimated Weight: 7-8 pounds - Last Score Last Score Cervix Position: Midposition Last Score Consistency: Soft Last Score Effacement: 51-70% Last Score Dilation: 1-2 cm Last Score Infant's Station: -1 ,0 Last Score Total: 8 - Exam General: Alert, Oriented HEENT: PERRLA, Conjunctiva Clear, EACs Clear, EOMI, Hearing Intact, Mucosa Moist & [place], Nares Patent, Normal Nasal Septum, Posterior Pharynx Clear, TMs Clear Neck: Supple, Trachea Midline Lungs: Clear to Auscultation, Normal Respiratory Effort Cardiovascular: Regular Rate, Regular Rhythm GI/Abdominal Exam: Normal Bowel Sounds, Soft, Non-Tender, No Organomegaly, No Distention, No Abnormal Bruit, No Mass, Pelvis Stable Rectal Exam: Normal Exam Genitourinary: Cervical dilitation, Enlarged uterus Back Exam: Normal Inspection Extremities: Normal Inspection, Normal Range of Motion Skin: Warm, Dry Neurological: Cranial Nerves Intact, Reflexes Equal Bilateral Psychiatric: Alert, Normal Affect, Normal Mood - Patient Data Lab Results Last 24 hrs: Laboratory Results - last 24 hr 07/22/21 Range/Units 09:23 Membrane Rupture Positive H (NEGATIVE) - Problem List (1) SROM (spontaneous rupture of membranes) SNOMED Code(s): 063966010 ICD Code: ZYW9123 - Status: Acute Current Visit: Yes (2) Tobacco consumption SNOMED Code(s): 981500709 ICD Code: Z72.0 - TOBACCO USE Status: Acute Current Visit: Yes (3) SNOMED Code(s): 25848987 ICD Code: Z34.90 - ENCNTR FOR SUPRVSN OF NORMAL , UNSP, UNSP TRIMESTER Status: Acute Current Visit: Yes Qualifiers: Weeks of gestation: 39 weeks (4) COVID-19 affecting in third trimester SNOMED Code(s): 063463364, 270924751 ICD Code: O98.513 - OTHER VIRAL DISEASES COMPLICATING , THIRD TRIMESTER; U07.1 - COVID-19 Status: Acute Current Visit: Yes Problem List Initiated/Reviewed/Updated: Yes Orders Last 24hrs: Active Orders 24 hr Category Date Time Status Patient Status [ADT] Routine ADT 07/22/21 09:58 Ordered Antiembolic Devices [RC] .Routine Care 07/22/21 10:00 Ordered Communication Order [RC] ASDIRECTED Care 07/22/21 09:58 Ordered Heart Tones [RC] PER UNIT ROUTINE Care 07/22/21 09:58 Ordered Non Stress Test [RC] Click to Edit Care 07/22/21 09:58 Ordered Notify Provider Vital Signs [RC] PRN Care 07/22/21 09:58 Ordered Notify Provider [RC] PRN Care 07/22/21 09:58 Ordered VTE/DVT Education [RC] Click to Edit Care 07/22/21 10:00 Ordered Vital Signs [RC] PER UNIT ROUTINE Care 07/22/21 09:58 Ordered Oxytocin/Normal Saline [Pitocin in NS 20 Units/1,000 ML Med 07/22/21 10:01 Ordered ] 20 unit in 1,000 ml IV ONETIME Sodium Chloride 0.9% [Saline Flush] Med 07/22/21 09:58 Ordered 10 ml FLUSH ASDIRECTED PRN DVT/VTE Prophylaxis Reflex [OM.PC] Routine Oth 07/22/21 09:58 Ordered Saline Lock Insert [OM.PC] Routine Oth 07/22/21 09:58 Ordered Resuscitation Status Routine Resus Stat 07/22/21 09:58 Ordered Medication Orders Oxytocin/Sodium Chloride (Pitocin In Ns 20 Units/1,000 Ml) 20 unit in 1,000 mls @ 999 mls/hr IV ONETIME ONE; Protocol Stop: 07/22/21 11:01 Sodium Chloride (Sodium Chloride 0.9% 10 Ml Syringe) 10 ml FLUSH ASDIRECTED PRN PRN Reason: Keep Vein Open Assessment/Plan Comment:: 20 year old with SROm at home tony Plan monitor and manage labor plan for vaginal delivery pain medication per patient request
[2021-07-22] MEDS ORDERED: Ondansetron 4 MG/2 ML SDV IVPUSH PRN (11:09)
--- NOTE | 2021-07-22 12:30 | PCM.PNLD ---
<Meera Vega - Last Filed: 07/22/21 12:23> Labor Progress Note - VS & Meds Vital Signs: Last Vital Signs Temp Pulse 81 07/22/21 09:46 Resp BP 131/84 07/22/21 09:46 Pulse Ox 97 07/22/21 09:46 Active Medications: Current Medications Oxytocin/Sodium Chloride (Pitocin In Ns 20 Units/1,000 Ml) 20 unit in 1,000 mls @ 999 mls/hr IV ASDIRECTED JEOVANNY; Protocol Ondansetron HCl (Ondansetron 4 Mg/2 Ml Sdv) 4 mg IVPUSH Q4H PRN PRN Reason: Nausea/Vomiting Sodium Chloride (Sodium Chloride 0.9% 10 Ml Syringe) 10 ml FLUSH ASDIRECTED PRN PRN Reason: Keep Vein Open - Uterine Contractions Uterine Monitoring Mode: External [place] Contraction Frequency (min): 1-6 Contraction Duration (sec): 30 - 90 Contraction Intensity: Mild to Moderate Uterine Resting Tone: Soft - Monitoring Monitor Mode: External Ultrasound Heart Rate (FHR) Baseline: 140 Heart Rate (FHR) Variability: Moderate (6-25 bpm) Accelerations: Present, 15x15 Decelerations: Variable Strip Review: Category II - Vaginal Exam Dilation (cm): 1.5 Effacement (Percent): 80 Station: -1 Cervical Position: Anterior Sterile Vaginal Exam Performed By: Sarai Vega - Labor Progress (Free Text) Labor Progress: 07/22/21 Alexandra is here and ruptured since 0800 with mec tinged fluid. She is tony about every 4 minutes, lasting 60seconds in length. EFM shows Category 1 FHT. SVE at 1215 is 1.5/90/-1 and anterior and soft. She was in the tub for pain relief and reports intense back labor. VS normal. Zofran was given for nausea and vomiting. Assessment: in early labor Ruptured membranes X4 hours Category 1 EFM ctx every 4-6 minutes Somewhat coping with labor pains Good support Plan: Trying different positioning and massage to improve coping with labor pain Continue to monitor FHT and contractions Recheck cervix in a few hours <Guerita Muñoz - Last Filed: 07/22/21 12:34> Labor Progress Note - VS & Meds Vital Signs: Last Vital Signs Temp Pulse 81 09/14/21 09:46 Resp BP 131/84 07/22/21 09:46 Pulse Ox 97 07/22/21 09:46 Active Medications: Current Medications Oxytocin/Sodium Chloride (Pitocin In Ns 20 Units/1,000 Ml) 20 unit in 1,000 mls @ 999 mls/hr IV ASDIRECTED JEOVANNY; Protocol Ondansetron HCl (Ondansetron 4 Mg/2 Ml Sdv) 4 mg IVPUSH Q4H PRN PRN Reason: Nausea/Vomiting Sodium Chloride (Sodium Chloride 0.9% 10 Ml Syringe) 10 ml FLUSH ASDIRECTED PRN PRN Reason: Keep Vein Open - Labor Progress (Free Text) Labor Progress: I personally performed or re-performed the physical examination and medical decision making. I have verified all student documentation or findings, including history, physical exam and/or medical decision making. Guerita Muñoz APRN, CNM CFNP
[2021-07-22] MEDS ORDERED: Ropivacaine 200 MG in Premix Bag 1 BAG EPIDUR SCH (13:45)
[2021-07-22] MEDS ORDERED: Lactated Ringers 1,000 ML IV ONE (13:45)
[2021-07-22] MEDS: Lactated Ringers 1,000 ML IV SCH ×2 (14:27→19:12)
[2021-07-22] MEDS ORDERED: ePHEDrine 50 MG/ML SDV IVPUSH PRN (14:28)
--- NOTE | 2021-07-22 15:02 | PCM.PNLD ---
Labor Progress Note - VS & Meds Vital Signs: Last Vital Signs Temp Pulse 74 07/22/21 12:22 Resp BP 123/62 07/22/21 12:22 Pulse Ox 97 07/22/21 09:46 Active Medications: Current Medications Ephedrine Sulfate (Ephedrine 50 Mg/Ml Sdv) 10 mg IVPUSH ASDIRECTED PRN PRN Reason: Hypotension Oxytocin/Sodium Chloride (Pitocin In Ns 20 Units/1,000 Ml) 20 unit in 1,000 mls @ 999 mls/hr IV ASDIRECTED JEOVANNY; Protocol Last Admin: 07/22/21 14:26 Dose: 2 mls/hr, 2 mls/hr Documented by: Lactated Ringer's (Ringers, Lactated) 1,000 mls @ 125 mls/hr IV ASDIRECTED JEOVANNY Last Admin: 07/22/21 14:27 Dose: 125 mls/hr Documented by: Ropivacaine 200 mg/ Premix 100 mls @ 0 mls/hr EPIDUR ASDIRECTED JEOVANNY Ondansetron HCl (Ondansetron 4 Mg/2 Ml Sdv) 4 mg IVPUSH Q4H PRN PRN Reason: Nausea/Vomiting Sodium Chloride (Sodium Chloride 0.9% 10 Ml Syringe) 10 ml FLUSH ASDIRECTED PRN PRN Reason: Keep Vein Open Discontinued Medications Lactated Ringer's (Ringers, Lactated) 1,000 mls @ 999 mls/hr IV ASDIRECTED ONE Stop: 07/22/21 14:45 Last Admin: 07/22/21 14:24 Dose: 999 mls/hr Documented by: - Uterine Contractions Uterine Monitoring Mode: External [place], Palpation Contraction Frequency (min): 2-5 Contraction Duration (sec): 40-60 Contraction Intensity: Moderate to Strong Uterine Resting Tone: Soft - Monitoring Monitor Mode: External Ultrasound Heart Rate (FHR) Baseline: 130 Heart Rate (FHR) Per Doppler: 130 Heart Rate (FHR) Variability: Moderate (6-25 bpm) Accelerations: Present, 15x15 Decelerations: None Strip Review: Category I - Vaginal Exam Dilation (cm): 2.0 Effacement (Percent): 90 Station: -1 Cervical Position: Anterior Sterile Vaginal Exam Performed By: tian vidal Vaginal Exam Comment: @ 1215 - Labor Progress (Free Text) Labor Progress: 07/21/21 Alexandra has been working hard through the morning and is requesting an epidural. AT 1330, SVE for -90/-1, soft and anterior. She is tony every 2-4 minutes and is working hard to cope. EFM shows 140bpm baseline, Category 1. At [address] and setting in. Assessment in early labor Epidural in place for pain management in labor Category 1 EFM with frequent contractions Plan Allow epidural to set up and reassess coping Continue to monitor baby and contractions Continue to change positions as able to promote descent Reassess cervix in about an hour Consider need for pitocin or IUPC depending on contraction pattern and cervical change
[2021-07-22] MEDS ORDERED: Ropivacaine 100 ML ONE (15:13)
[2021-07-22] MEDS ORDERED: Misoprostol 200 MCG Tab ONE (23:12)
[2021-07-22] MEDS ORDERED: Methylergonovine 0.2 MG/1 ML Amp ONE (23:13)
--- NOTE | 2021-07-23 00:45 | PCM.PNLD ---
<Meera Vega - Last Filed: 07/23/21 00:46> Labor Progress Note - VS & Meds Vital Signs: Last Vital Signs Temp Pulse 65 07/22/21 19:18 Resp BP 118/67 07/22/21 19:18 Pulse Ox 100 07/22/21 15:42 Active Medications: Current Medications Ephedrine Sulfate (Ephedrine 50 Mg/Ml Sdv) 10 mg IVPUSH ASDIRECTED PRN PRN Reason: Hypotension Oxytocin/Sodium Chloride (Pitocin In Ns 20 Units/1,000 Ml) 20 unit in 1,000 mls @ 999 mls/hr IV ASDIRECTED JEOVANNY; Protocol Last Titration: 07/22/21 17:14 Dose: 6 mls/hr, 6 mls/hr Documented by: Lactated Ringer's (Ringers, Lactated) 1,000 mls @ 125 mls/hr IV ASDIRECTED [facility] Last Admin: 07/22/21 19:12 Dose: 125 mls/hr Documented by: Ropivacaine 200 mg/ Premix 100 mls @ 0 mls/hr EPIDUR ASDIRECTED [facility] Last Admin: 07/22/21 21:18 Dose: 12 mls/hr Documented by: Ondansetron HCl (Ondansetron 4 Mg/2 Ml Sdv) 4 mg IVPUSH Q4H PRN PRN Reason: Nausea/Vomiting Sodium Chloride (Sodium Chloride 0.9% 10 Ml Syringe) 10 ml FLUSH ASDIRECTED PRN PRN Reason: Keep Vein Open Discontinued Medications Lactated Ringer's (Ringers, Lactated) 1,000 mls @ 999 mls/hr IV ASDIRECTED ONE Stop: 07/22/21 14:45 Last Admin: 07/22/21 14:24 Dose: 999 mls/hr Documented by: Ropivacaine (Naropin 0.2%) Confirm Administered Dose 100 mls @ as directed .ROUTE .STK-MED ONE Stop: 07/22/21 15:14 Methylergonovine Maleate (Methylergonovine 0.2 Mg/1 Ml Amp) Confirm Administered Dose 0.2 mg .ROUTE .STK-MED ONE Stop: 07/22/21 23:14 Misoprostol (Misoprostol 200 Mcg Tab) Confirm Administered Dose 800 mcg .ROUTE .STK-MED ONE Stop: 07/22/21 23:13 - Uterine Contractions Uterine Monitoring Mode: External [place] Contraction Frequency (min): 2-3 Contraction Duration (sec): 50-80 Contraction Intensity: Mild to Moderate Uterine Resting Tone: Soft - Monitoring Monitor Mode: External Ultrasound Heart Rate (FHR) Baseline: 150 Heart Rate (FHR) Per Doppler: 130 Heart Rate (FHR) Variability: Moderate (6-25 bpm) Accelerations: Present, 15x15 Decelerations: Early Strip Review: Category I - Vaginal Exam Dilation (cm): 10 Effacement (Percent): 100 Station: -2 Cervical Position: Midposition Sterile Vaginal Exam Performed By: Guerita Muñoz - Labor Progress (Free Text) Labor Progress: 07/22/21 Alexandra was much more comfortable this afternoon with an epidural. Pitocin was started and titrated per protocol to maintain adequate contraction pattern. She was checked at 2000 and was 7/100/+1. She continued to rest comfortably with the epidural and EFM showed category 1. She was checked at 2200 and was 10/100/+1 and the decision was made to labor down. She started pushing at 2230 in the lithotomy position, hands and knees, and side lying. FHT decreased to 90-110 at times during contractions and recovered back to 130-140 at rest. Alexandra was very tired at this point and maternal exhaustion was evident in pushing efforts. At 0030, the decision was made to move forward with a due to lack of descent. <Guerita Muñoz - Last Filed: 07/23/21 00:52> Labor Progress Note - VS & Meds Vital Signs: Last Vital Signs Temp Pulse 65 07/22/21 19:18 Resp BP 118/67 07/22/21 19:18 Pulse Ox 100 07/22/21 15:42 Active Medications: Current Medications Ephedrine Sulfate (Ephedrine 50 Mg/Ml Sdv) 10 mg IVPUSH ASDIRECTED PRN PRN Reason: Hypotension Oxytocin/Sodium Chloride (Pitocin In Ns 20 Units/1,000 Ml) 20 unit in 1,000 mls @ 999 mls/hr IV ASDIRECTED JEOVANNY; Protocol Last Titration: 07/22/21 17:14 Dose: 6 mls/hr, 6 mls/hr Documented by: Lactated Ringer's (Ringers, Lactated) 1,000 mls @ 125 mls/hr IV ASDIRECTED [facility] Last Admin: 07/22/21 19:12 Dose: 125 mls/hr Documented by: Ropivacaine 200 mg/ Premix 100 mls @ 0 mls/hr EPIDUR ASDIRECTED [facility] Last Admin: 07/22/21 21:18 Dose: 12 mls/hr Documented by: Ondansetron HCl (Ondansetron 4 Mg/2 Ml Sdv) 4 mg IVPUSH Q4H PRN PRN Reason: Nausea/Vomiting Sodium Chloride (Sodium Chloride 0.9% 10 Ml Syringe) 10 ml FLUSH ASDIRECTED PRN PRN Reason: Keep Vein Open Discontinued Medications Lactated Ringer's (Ringers, Lactated) 1,000 mls @ 999 mls/hr IV ASDIRECTED ONE Stop: 07/22/21 14:45 Last Admin: 07/22/21 14:24 Dose: 999 mls/hr Documented by: Ropivacaine (Naropin 0.2%) Confirm Administered Dose 100 mls @ as directed .ROUTE .STK-MED ONE Stop: 07/22/21 15:14 Methylergonovine Maleate (Methylergonovine 0.2 Mg/1 Ml Amp) Confirm Administered Dose 0.2 mg .ROUTE .STK-MED ONE Stop: 07/22/21 23:14 Misoprostol (Misoprostol 200 Mcg Tab) Confirm Administered Dose 800 mcg .ROUTE .STK-MED ONE Stop: 07/22/21 23:13 - Labor Progress (Free Text) Labor Progress: I personally performed or re-performed the physical examination and medical decision making. I have verified all student documentation or findings, including history, physical exam and/or medical decision making. Guerita DIMAS
--- NOTE | 2021-07-23 00:49 | ANES ---
DATE OF SERVICE: 07/22/2021 INDICATIONS: Alexandra is a 20-year-old, female patient in our obstetric unit G1, P0 as requested by Guerita Muñoz for assessment of labor epidural. Upon arrival, I reviewed with her history as well as lab work. I found no contraindication to labor epidural placement. DESCRIPTION OF PROCEDURE: I had her seated at the edge of the bed. Betadine prep x3 to lumbar region. Sterile drape was placed, 1% lidocaine skin wheal as well as deep at the L3- L4 region. A 17-gauge she was placed to loss of resistance. Negative CSF, negative heme, negative paresthesia. I inserted a silicone catheter to 13 cm. A test dose of 3 mL of 1.5% lidocaine 1:200,000 epinephrine. Sterile bandage was placed. She was placed in a supine position. Dosed her with 12 mL of 0.2% ropivacaine and began an infusion of that same 0.2% ropivacaine. She tolerated the procedure quite well. Please refer to nurse's notes for vital signs and neuro status, which were unchanged and within normal limits. I reported off to the nurse. Thank you very much for consult. Kvng Pyle CRNA /[id number]
[2021-07-23] MEDS ORDERED: Oxytocin 10 Units/1 ML SDV ONE (01:03)
[2021-07-23] MEDS ORDERED: Propofol 200 MG/20 ML SDV ONE (01:24)
[2021-07-23] MEDS ORDERED: Succinylcholine 200 MG/10 ML MDV ONE (01:24)
[2021-07-23] MEDS ORDERED: fentaNYL 250 MCG/5 ML SDV ONE (01:24)
[2021-07-23] MEDS ORDERED: Rocuronium 50 MG/5 ML Vial ONE (01:25)
[2021-07-23] MEDS ORDERED: Dexamethasone 4 MG/ML SDV ONE (01:26)
[2021-07-23] MEDS ORDERED: Ondansetron 4 MG/2 ML SDV ONE (01:26)
[2021-07-23] MEDS ORDERED: Neostigmine Methylsulfate 1 MG/ML 5 ML Syringe ONE (01:26)
[2021-07-23] MEDS ORDERED: Glycopyrrolate 0.2 MG/ML 5 ML MDV ONE (01:26)
[2021-07-23] MEDS ORDERED: cefOXitin 2 GM Vial ONE (01:27)
[2021-07-23] MEDS ORDERED: Sodium Chloride 0.9% 10 ML ONE (01:27)
[2021-07-23] MEDS ORDERED: Bupivacaine 0.5%/EPINEPHrine 1:200,000 50 ML MDV ONE (01:50)
[2021-07-23] MEDS ORDERED: Ketorolac 30 MG/ML SDV ONE (01:52)
[2021-07-23] MEDS ORDERED: fentaNYL 100 MCG/2 ML SDV IVPUSH PRN (01:58)
[2021-07-23] MEDS ORDERED: diphenhydrAMINE 50 MG/ML SDV IV PRN (01:58)
[2021-07-23] MEDS ORDERED: Witch Hazel Medicated Pads 100/Jar TOP ONE (01:58)
[2021-07-23] MEDS ORDERED: ePHEDrine 50 MG/ML SDV IVPUSH PRN (01:58)
[2021-07-23] MEDS ORDERED: diphenhydrAMINE 50 MG/ML SDV IVPUSH PRN (01:58)
[2021-07-23] MEDS ORDERED: Bisacodyl 10 MG Supp RECTAL PRN (01:58)
[2021-07-23] MEDS ORDERED: Simethicone 80 MG Tab.Chew PO PRN (01:58)
[2021-07-23] MEDS ORDERED: Lanolin 100% Cream 40 GM Tube TOP ONE (01:58)
[2021-07-23] MEDS ORDERED: Naloxone 0.4 MG/ML SDV IVPUSH PRN (01:58)
[2021-07-23] MEDS ORDERED: Ondansetron 4 MG Tab.DIS PO PRN (01:58)
[2021-07-23] MEDS ORDERED: Benzocaine 20% Top Spray 56 GM Bottle TOP ONE (01:58)
[2021-07-23] MEDS ORDERED: Oxytocin 10 Units/1 ML SDV IM ONE (02:00)
[2021-07-23] MEDS ORDERED: Sodium Chloride 0.9% 1,000 ML IV SCH ×2 (02:00→16:15)
[2021-07-23] MEDS ORDERED: fentaNYL 100 MCG/2 ML SDV ONE (02:10)
[2021-07-23] MEDS ORDERED: Morphine 4 MG/ML Syringe IVPUSH PRN (02:15)
[2021-07-23] MEDS: Lactated Ringers 1,000 ML IV SCH (03:25)
[2021-07-23] MEDS: Acetaminophen/oxyCODONE 325-5 MG Tab PO PRN ×5 (05:47→22:23)
--- NOTE | 2021-07-23 07:52 | OR ---
DATE OF PROCEDURE: 07/23/2021 SURGEON: Malachi Torres MD PROCEDURE: section with aftercare. SUSTAINABILITY EXECUTIVE DIRECTOR: Jamee Muñoz CNM COMPLICATION: None. RISKS: Prior to the procedure, risks, benefits, alternatives, and limitations, including, but not limited to, infection; bleeding; injury to bladder, bowel, or baby; and other risks not listed here, were explained to the patient, and they wished to proceed. PROCEDURE IN DETAIL: The patient was placed in supine position. A supraumbilical Pfannenstiel-type incision was made in a stat-type setting due to failure of baby to advance. This was started with a 15 blade and carried down with electrocautery to the external oblique aponeurosis, which was also opened up with electrocautery. The peritoneum was opened sharply. Using a muscle-sparing technique, the rectus muscles were . The bladder was identified and deflected inferiorly. The uterus was opened bluntly. The baby was noted to be very deep in the pelvis, and the head was able to be brought up, and the baby was delivered with mild difficulty. The cord was subsequently clamped and cut. The placenta was delivered without difficulty. Pitocin was given. No abnormal bleeding was noted. The uterus was then closed with #1 Vicryl in a running locked fashion x3. The abdomen was irrigated. The clot was removed. The rectus muscles were reapproximated. The fascia was closed with #1 Vicryl in a running fashion times x2. Jewel clamps were used to grasp the corners to ensure closure. The subcutaneous tissue was approximated with 3-0 Vicryl. Skin was closed with 4-0 Vicryl and Dermabond. The patient tolerated the procedure well. Malachi Torres MD /[id number]
[2021-07-23] MEDS: Ibuprofen 800 MG Tab PO PRN ×2 (07:57→16:17)
--- NOTE | 2021-07-23 08:56 | CR ---
Abdomen 1V Flat CLINICAL HISTORY: No surgical sponge count, FINDINGS: There is an NG tube curled in the upper stomach. There is mild gaseous distention of the colon. There is fluid and/or soft tissue density in the mid abdomen likely a uterus IMPRESSION: Very limited study performed in the OR No surgical sponges identified
[2021-07-23] MEDS: Prenatal Multivitamin with Calcium/Folic Acid/Iron Tab PO SCH (09:51)
[2021-07-23] MEDS ORDERED: Benzocaine 20% Top Spray 56 GM Bottle TOP PRN (10:05)
[2021-07-23] MEDS ORDERED: Witch Hazel Medicated Pads 100/Jar TOP PRN (10:05)
[2021-07-23] MEDS: Docusate Sodium 100 MG Cap PO PRN (10:18)
[2021-07-23] MEDS ORDERED: hydrOXYzine HCl 10 MG Tab PO SCH (18:00)
[2021-07-24] MEDS: Ibuprofen 800 MG Tab PO PRN ×2 (00:37→16:56)
[2021-07-24] MEDS: Acetaminophen/oxyCODONE 325-5 MG Tab PO PRN ×6 (02:26→23:05)
[2021-07-24] MEDS: Prenatal Multivitamin with Calcium/Folic Acid/Iron Tab PO SCH (08:32)
[2021-07-24] MEDS ORDERED: Ketorolac 30 MG/ML SDV IM ONE (08:45)
[2021-07-24] MEDS: Docusate Sodium 100 MG Cap PO PRN (08:57)
[2021-07-24] MEDS: Polyethylene Glycol 3350 Powder 17 GM Packet PO SCH (08:57)
--- NOTE | 2021-07-24 10:14 | PN ---
DATE OF SERVICE: 07/24/2021 SUBJECTIVE: The patient is doing well. Pain is well controlled. No nausea, vomiting, shortness of breath, or chest pain. OBJECTIVE: VITAL SIGNS: Stable. CARDIOVASCULAR: Regular rhythm and rate. RESPIRATORY: Lungs clear to auscultation bilaterally. SKIN: Incision healing well. ASSESSMENT: Status post . PLAN: Continue to work on diet and activity. She may shower. Anticipate discharge in the next 24 hours or . Malachi Torres MD /[id number]
[2021-07-24] MEDS ORDERED: Lanolin 100% Cream 40 GM Tube TOP PRN (12:24)
[2021-07-24] MEDS ORDERED: Bisacodyl 10 MG Supp RECTAL ONE (16:48)
[2021-07-24] MEDS ORDERED: hydrOXYzine HCl 10 MG Tab PO SCH (20:00)
[2021-07-25] MEDS: Ibuprofen 800 MG Tab PO PRN (02:02)
[2021-07-25] MEDS: Acetaminophen/oxyCODONE 325-5 MG Tab PO PRN ×2 (03:19→07:56)
[2021-07-25] MEDS: Docusate Sodium 100 MG Cap PO PRN (07:58)
--- NOTE | 2021-07-25 08:23 | PCM.PNPP ---
- General Info Date of Service: 07/25/21 Functional Status: Reports: Pain Controlled - Review of Systems General: Reports: No Symptoms HEENT: Reports: No Symptoms Pulmonary: Reports: No Symptoms Cardiovascular: Reports: No Symptoms Gastrointestinal: Reports: No Symptoms Genitourinary: Reports: No Symptoms Musculoskeletal: Reports: No Symptoms Skin: Reports: No Symptoms Neurological: Reports: No Symptoms Psychiatric: Reports: Anxiety - General Info Date of Service: 07/25/21 - Patient Data Vital Signs - Most Recent: Last Vital Signs Temp 36.6 C 07/25/21 03:00 Pulse 106 H 07/25/21 03:00 Resp 16 07/25/21 03:00 BP 115/75 07/25/21 03:00 Pulse Ox 97 07/25/21 03:00 Weight - Most Recent: 86.183 kg I&O - Last 24 Hours: Intake & Output 07/24/21 07/25/21 07/25/21 22:59 06:59 14:59 Output Total 1000 Balance -1000 Med Orders - Current: Current Medications Benzocaine (Benzocaine 20% Top [place] 56 Gm Bottle) 0 gm TOP Q4H PRN PRN Reason: Pain Last Admin: 07/23/21 11:10 Dose: 56 gm Documented by: Bisacodyl (Bisacodyl 10 Mg Supp) 10 mg RECTAL BID PRN PRN Reason: Constipation Diphenhydramine HCl (Diphenhydramine 50 Mg/Ml Sdv) 25 mg IVPUSH Q6H PRN PRN Reason: Itching or Nausea Diphenhydramine HCl (Diphenhydramine 50 Mg/Ml Sdv) 25 mg IV Q4H PRN PRN Reason: Itching Docusate Sodium (Docusate Sodium 100 Mg Cap) 100 mg PO BID PRN PRN Reason: Constipation Last Admin: 07/25/21 07:58 Dose: 100 mg Documented by: Emollient Ointment (Lanolin 100% Cream 40 Gm Tube) 0 gm TOP ASDIRECTED PRN PRN Reason: Pain Last Admin: 07/24/21 13:02 Dose: 1 applic Documented by: Fentanyl (Fentanyl 100 Mcg/2 Ml Sdv) 10 mcg IVPUSH Q2H PRN PRN Reason: Pain (severe 7-10) Last Admin: 07/23/21 03:18 Dose: 10 mcg Documented by: Hydroxyzine HCl (Hydroxyzine Hcl 10 Mg Tab) 10 mg PO Q24H [facility] Ropivacaine 200 mg/ Premix 100 mls @ 0 mls/hr EPIDUR ASDIRECTED [facility] Last Admin: 07/22/21 21:18 Dose: 12 mls/hr Documented by: Ibuprofen (Ibuprofen 800 Mg Tab) 800 mg PO Q8H PRN PRN Reason: mild pain or fever Last Admin: 07/25/21 02:02 Dose: 800 mg Documented by: Morphine Sulfate (Morphine 4 Mg/Ml Syringe) 1 - 3 mg IVPUSH Q1H PRN PRN Reason: Pain (severe 7-10) Naloxone HCl (Naloxone 0.4 Mg/Ml Sdv) 0.1 mg IVPUSH ASDIRECTED PRN PRN Reason: Respiratory Depression Ondansetron HCl (Ondansetron 4 Mg/2 Ml Sdv) 4 mg IVPUSH Q4H PRN PRN Reason: Nausea/Vomiting Ondansetron HCl (Ondansetron 4 Mg Tab.Dis) 8 mg PO Q6H PRN PRN Reason: Nausea/Vomiting Oxycodone/Acetaminophen (Acetaminophen/Oxycodone 325-5 Mg Tab) 2 tab PO Q4H PRN PRN Reason: Pain (moderate 4-6) Last Admin: 07/25/21 07:56 Dose: 2 tab Documented by: Polyethylene Glycol (Polyethylene Glycol 3350 Powder 17 Gm Packet) 17 gm PO DAILY [facility] Last Admin: 07/24/21 08:57 Dose: 17 gm Documented by: Prenat Multivit/[place]/Iron/Folic Ac ( Multivitamin With Calcium/Folic Acid/Iron Tab) 1 each PO DAILY [facility] Last Admin: 07/24/21 08:32 Dose: 1 each Documented by: Simethicone (Simethicone 80 Mg Tab.Chew) 80 mg PO Q4H PRN PRN Reason: Gas Sodium Chloride (Sodium Chloride 0.9% 10 Ml Syringe) 10 ml FLUSH ASDIRECTED PRN PRN Reason: Keep Vein Open Witch Simona (Witch Simona Medicated Pads 100/Jar) 1 pad TOP ASDIRECTED PRN PRN Reason: Pain Last Admin: 07/23/21 11:10 Dose: 1 pad Documented by: Discontinued Medications Benzocaine (Benzocaine 20% Top [place] 56 Gm Bottle) 0 gm TOP Q4H ONE Stop: 07/23/21 01:59 Last Admin: 07/23/21 03:40 Dose: Not Given Documented by: Bisacodyl (Bisacodyl 10 Mg Supp) 10 mg RECTAL ONETIME ONE Stop: 07/24/21 16:49 Last Admin: 07/24/21 16:57 Dose: 10 mg Documented by: Bupivacaine HCl/Epinephrine Bitart (Bupivacaine 0.5%/Epinephrine 1:200,000 50 Ml Mdv) Confirm Administered Dose 50 ml .ROUTE .STK-MED ONE Stop: 07/23/21 01:51 Last Admin: 07/23/21 02:00 Dose: 50 ml Documented by: Cefoxitin Sodium (Cefoxitin 2 Gm Vial) Confirm Administered Dose 2 gm .ROUTE .STK-MED ONE Stop: 07/23/21 01:28 Dexamethasone (Dexamethasone 4 Mg/Ml Sdv) Confirm Administered Dose 4 mg .ROUTE .STK-MED ONE Stop: 07/23/21 01:27 Emollient Ointment (Lanolin 100% Cream 40 Gm Tube) 40 gm TOP ASDIRECTED ONE Stop: 07/23/21 01:59 Last Admin: 07/23/21 03:41 Dose: Not Given Documented by: Ephedrine Sulfate (Ephedrine 50 Mg/Ml Sdv) 10 mg IVPUSH ASDIRECTED PRN PRN Reason: Hypotension Ephedrine Sulfate (Ephedrine 50 Mg/Ml Sdv) 5 mg IVPUSH ASDIRECTED PRN PRN Reason: Other Fentanyl (Fentanyl 250 Mcg/5 Ml Sdv) Confirm Administered Dose 250 mcg .ROUTE .STK-MED ONE Stop: 07/23/21 01:25 Fentanyl (Fentanyl 100 Mcg/2 Ml Sdv) Confirm Administered Dose 100 mcg .ROUTE .STK-MED ONE Stop: 07/23/21 02:11 Glycopyrrolate (Glycopyrrolate 0.2 Mg/Ml 5 Ml Mdv) Confirm Administered Dose 1 mg .ROUTE .STK-MED ONE Stop: 07/23/21 01:27 Hydroxyzine HCl (Hydroxyzine Hcl 10 Mg Tab) 10 mg PO DAILY [facility] Last Admin: 07/23/21 18:29 Dose: 10 mg Documented by: Hydroxyzine HCl (Hydroxyzine Hcl 10 Mg Tab) 10 mg PO Q24H [facility] Last Admin: 07/24/21 16:57 Dose: 10 mg Documented by: Oxytocin/Sodium Chloride (Pitocin In Ns 20 Units/1,000 Ml) 20 unit in 1,000 mls @ 999 mls/hr IV ASDIRECTED [facility]; Protocol Last Titration: 07/22/21 17:14 Dose: 6 mls/hr, 6 mls/hr Documented by: Lactated Ringer's (Ringers, Lactated) 1,000 mls @ 999 mls/hr IV ASDIRECTED ONE Stop: 07/22/21 14:45 Last Admin: 07/22/21 14:24 Dose: 999 mls/hr Documented by: Lactated Ringer's (Ringers, Lactated) 1,000 mls @ 125 mls/hr IV ASDIRECTED [facility] Last Admin: 07/23/21 03:25 Dose: 125 mls/hr Documented by: Ropivacaine (Naropin 0.2%) Confirm Administered Dose 100 mls @ as directed .ROUTE .STK-MED ONE Stop: 07/22/21 15:14 Sodium Chloride (Normal Saline) Confirm Administered Dose 10 mls @ as directed .ROUTE .STK-MED ONE Stop: 07/23/21 01:28 Sodium Chloride (Normal Saline) 1,000 mls @ 125 mls/hr IV ASDIRECTED [facility] Last Admin: 07/23/21 11:09 Dose: 125 mls/hr Documented by: Sodium Chloride (Normal Saline) 1,000 mls @ 75 mls/hr IV ASDIRECTED [facility] Ketorolac Tromethamine (Ketorolac 30 Mg/Ml Sdv) Confirm Administered Dose 60 mg .ROUTE .STK-MED ONE Stop: 07/23/21 01:53 Ketorolac Tromethamine (Ketorolac 30 Mg/Ml Sdv) 60 mg IM ONETIME ONE Stop: 07/24/21 08:46 Last Admin: 07/24/21 08:32 Dose: 60 mg Documented by: Methylergonovine Maleate (Methylergonovine 0.2 Mg/1 Ml Amp) Confirm Administered Dose 0.2 mg .ROUTE .STK-MED ONE Stop: 07/22/21 23:14 Last Admin: 07/23/21 03:06 Dose: Not Given Documented by: Misoprostol (Misoprostol 200 Mcg Tab) Confirm Administered Dose 800 mcg .ROUTE .STK-MED ONE Stop: 07/22/21 23:13 Last Admin: 07/23/21 03:06 Dose: Not Given Documented by: Neostigmine Methylsulfate (Neostigmine Methylsulfate 1 Mg/Ml 5 Ml Syringe) Confirm Administered Dose 5 mg .ROUTE .STK-MED ONE Stop: 07/23/21 01:27 Ondansetron HCl (Ondansetron 4 Mg/2 Ml Sdv) Confirm Administered Dose 4 mg .ROUTE .STK-MED ONE Stop: 07/23/21 01:27 Oxytocin (Oxytocin 10 Units/1 Ml Sdv) 10 unit IM .STK-MED ONE Stop: 07/23/21 02:01 Last Admin: 07/23/21 02:00 Dose: 10 unit Documented by: Propofol (Propofol 200 Mg/20 Ml Sdv) Confirm Administered Dose 200 mg .ROUTE .STK-MED ONE Stop: 07/23/21 01:25 Rocuronium [place] (Rocuronium 50 Mg/5 Ml Vial) Confirm Administered Dose 50 mg .ROUTE .STK-MED ONE Stop: 07/23/21 01:26 Succinylcholine Chloride (Succinylcholine 200 Mg/10 Ml Mdv) Confirm Administered Dose 200 mg .ROUTE .STK-MED ONE Stop: 07/23/21 01:25 Witch Simona (Witch Simona Medicated Pads 100/Jar) 1 pad TOP ASDIRECTED ONE Stop: 07/23/21 01:59 Last Admin: 07/23/21 03:41 Dose: Not Given Documented by: - Interaction Disposition, : [place] in Room with Family Interaction: Holding Infant Infant Feeding: Breastfed ; Nursed Well Support Person: Significant Other - Recovery Exam Fundal Tone: Firm Fundal Level: At Umbilicus Fundal Placement: Midline Lochia Amount: Small Lochia Color: Rubra/Red Perineum Description: Intact, Minimal Bruising/Swelling Episiotomy/Laceration: None Bladder Status: Voiding Urinary Elimination: Voided - Exam General: Alert, Oriented HEENT: Pupils Equal, Pupils Reactive, Mucous Membr. Moist/[place] Neck: Supple Lungs: Clear to Auscultation, Normal Respiratory Effort Cardiovascular: Regular Rate, Regular Rhythm GI/Abdominal Exam: Normal Bowel Sounds, Soft, No Distention, Pelvis Stable, Tender Extremities: Normal Inspection, Normal Range of Motion, Non-Tender, No Pedal Edema, Normal Capillary Refill Skin: Warm, Dry, Intact Wound/Incisions: Healing Well, No Drainage Neurological: No New Focal Deficit Psy/Mental Status: Alert, Normal Affect, Normal Mood - Problem List & Annotations (1) Delivery by section SNOMED Code(s): 094116350 Code(s): AEI0738 - Status: Acute Current Visit: Yes (2) COVID-19 affecting in third trimester SNOMED Code(s): 443394140, 516706438 Code(s): O98.513 - OTHER VIRAL DISEASES COMPLICATING , THIRD TRIMESTER; U07.1 - COVID-19 Status: Acute Current Visit: Yes (3) SNOMED Code(s): 89799011 Code(s): Z34.90 - ENCNTR FOR SUPRVSN OF NORMAL , UNSP, UNSP TRIMESTER Status: Acute Current Visit: Yes Qualifiers: Weeks of gestation: 39 weeks (4) SROM (spontaneous rupture of membranes) SNOMED Code(s): 148186278 Code(s): OOM4086 - Status: Acute Current Visit: Yes (5) Status post SNOMED Code(s): 722896690, 540042307 Code(s): Z98.891 - HISTORY OF UTERINE SCAR FROM PREVIOUS SURGERY Status: Acute Current Visit: Yes (6) Tobacco consumption SNOMED Code(s): 544811350 Code(s): Z72.0 - TOBACCO USE Status: Acute Current Visit: Yes (7) Elective induction of labor planned SNOMED Code(s): 437237281 Code(s): XPI8277 - Status: Acute Current Visit: No - Problem List Review Problem List Initiated/Reviewed/Updated: Yes - My Orders Last 24 Hours: My Active Orders 07/24/21 09:00 polyethylene glycoL 3350 [MiraLAX] 17 gm PO DAILY 07/25/21 07:56 CBC WITH AUTO DIFF [HEME] Routine - Assessment Assessment:: 07/25/21 PP day 2 doing very well today Voiding, did stool AVSS going much better with nipple shield Mother complains of intermittent anxiety controlled with Atarax - Plan Plan:: 20 year old with SROm at home tony Plan monitor and manage labor plan for vaginal delivery pain medication per patient request 07/25/21 Discharge home today 2 week check with surgery, 6 week check Has breast pump
[2021-07-25] MEDS ORDERED: hydrOXYzine HCl 25 MG Tab PO PRN (08:27)
[2021-07-25] MEDS: Polyethylene Glycol 3350 Powder 17 GM Packet PO SCH (08:29)
[2021-07-25] MEDS: Prenatal Multivitamin with Calcium/Folic Acid/Iron Tab PO SCH (08:29)
[2021-07-25 09:33] VITALS: PULSE 101
[2021-07-25 15:51] VITALS: BP 123/76
[2021-07-25] MEDS ORDERED: hydrOXYzine HCl 10 MG Tab PO SCH (17:00)
== END 2021-07-25 11:52 | disposition home or self-care (01) | DRG 788 ==
LOC: JP.OBCHECK 09:12 → JP.OB 09:14 → JP.OBCHECK 10:05 → JP.OB 10:06 → OBSVTOIN 07-23 01:26 → JP.MS 07-23 03:00
PROVIDERS: ADMIT Nurse Practitioner Family; ATTEND Nurse Practitioner Family
PROC: 10D00Z2 Extraction of Products of Conception, Extraperitoneal, Open Approach (ICD-10-PCS; principal; 2021-07-23)
PROC: 3E0R3BZ Introduction of Anesthetic Agent into Spinal Canal, Percutaneous Approach (ICD-10-PCS; 2021-07-23)
PROC: 00HU33Z Insertion of Infusion Device into Spinal Canal, Percutaneous Approach (ICD-10-PCS; 2021-07-23)
DX: O99.62 Diseases of the digestive system complicating childbirth (principal); K21.9 Gastro-esophageal reflux disease without esophagitis; O99.344 Other mental disorders complicating childbirth; F41.0 Panic disorder [episodic paroxysmal anxiety]; F32.9 Major depressive disorder, single episode, unspecified; Z20.822 Contact with and (suspected) exposure to COVID-19; Z37.0 Single live birth; Z3A.39 39 weeks gestation of pregnancy; Z88.1 Allergy status to other antibiotic agents; Z79.899 Other long term (current) drug therapy
CPT/HCPCS: 36415; 51702; 74018; 74018-26; 80048; 84112; 85025; 88307; 99211; A9270-GY; J0330; J0694; J1100; J1885; J2405; J2590; J2704; J2710; J2795; J3010; J3490; J7030; J7120

== ENCOUNTER 2021-07-25 17:15 | Emergency (ER) | payer MEDICAID ==
--- NOTE | 2021-07-25 18:32 | EDM.PDOC ---
ED HPI GENERAL MEDICAL PROBLEM - General Chief Complaint: Fever Stated Complaint: FEVER, POST Time Seen by Provider: 07/25/21 17:48 Source of Information: Reports: Patient, Family, RN Notes Reviewed History Limitations: Reports: No Limitations - History of Present Illness INITIAL COMMENTS - FREE TEXT/NARRATIVE: Alexandra presents today for complaints of fever, cough without mucus production, generalized body aches and pain, constipation, edema to bilateral lower extremities, pink vaginal discharge with chunks of mucus, edema to labia and pain to incision of . Last percocet 2 hours prior to arrival. 07/23/2021. COVID + 3 weeks ago without significant illness. incisional Pain Score (Numeric/FACES): 8 - Related Data Allergies Allergy/AdvReac Type Severity Reaction Status Date / Time neomycin Allergy Swelling Verified 07/25/21 17:37 Home Meds: Home Meds Omeprazole 20 mg PO ACBREAKFAST 07/21/21 [History] Docusate Sodium [Colace] 100 mg PO BID PRN cap 07/25/21 [Rx] Ibuprofen [Motrin] 800 mg PO Q8H PRN tablet 07/25/21 [Rx] Lanolin [Lansinoh HPA] 0 gm TOP ASDIRECTED PRN tube 07/25/21 [Rx] Vit with Ca/FA/Iron [ Plus Iron] 1 each PO DAILY tablet 07/25/21 [Rx] bisacodyL [Dulcolax] 10 mg RECTAL DAILY supp 07/25/21 [Rx] Past Medical History HEENT History: Reports: Impaired Vision Cardiovascular History: Reports: Heart Murmur Gastrointestinal History: Reports: GERD Genitourinary History: Reports: UTI, Recurrent DISPUTE SPECIALIST History: Reports: , Spontaneous Musculoskeletal History: Reports: Other (See Below) Other Musculoskeletal History: 3 broken bones in right foot Psychiatric History: Reports: Anxiety, Depression, Panic Attack Hematologic History: Reports: None Dermatologic History: Reports: Other (See Below) Other Dermatologic History: patches on upper arms of rash - Infectious Disease History Infectious Disease History: Reports: Chicken Pox - Past Surgical History Head Surgeries/Procedures: Reports: None HEENT Surgical History: Reports: Oral Surgery Cardiovascular Surgical History: Reports: None GI Surgical History: Reports: Appendectomy Female Surgical History: Reports: None Musculoskeletal Surgical History: Reports: None Other Musculoskeletal Surgeries/Procedures:: broken bones in foot Dermatological Surgical History: Reports: None Social & Family History - Family History Family Medical History: No Pertinent Family History - Tobacco Use Tobacco Use Status *Q: Current Every Day Tobacco User Years of Tobacco use: 5 Packs/Tins Daily: 0.3 - Caffeine Use Caffeine Use: Reports: None - Recreational Drug Use Recreational Drug Use: No ED ROS GENERAL - Review of Systems Review Of Systems: See Below Constitutional: Reports: Fever, Malaise, Fatigue. Denies: Chills, Weakness, Night Sweats, Diaphoresis HEENT: Reports: No Symptoms Respiratory: Reports: Cough, Other (Patient states she had [address] to the emergency room today - this did not make her cough. ). Denies: Shortness of Breath, Wheezing, Pleuritic Chest Pain, Sputum, Hemoptysis Cardiovascular: Reports: Edema (to bilateral lower extremities). Denies: Chest Pain, Blood Pressure Problem, Claudication, Dyspnea on Exertion, Lightheadedness, Palpitations, PND, Syncope Endocrine: Reports: Fatigue GI/Abdominal: Reports: Abdominal Pain (at site of incision to lower abdomen. ), Constipation. Denies: Anorexia, Black Stool, Bloody Stool, Diarrhea, Difficulty Swallowing, Distension, Hematemesis, Melena, Nausea, Stool Incontinence, Vomiting : Reports: Other (bright pink to dark red/brown vaginal discharge with white to green mucus. ). Denies: Dysuria, Flank Pain, Frequency, Hematuria, Incontinence, Pain, Urgency, Urinary Retention Musculoskeletal: Reports: Other (All over body aches and pain) Skin: Reports: Bruising (to abdominal incision), Erythema (slight erythema to left half of lower abdominal incision no erythema or fluctuance. No drainage noted. ). Denies: Cyanosis, Jaundice, Mottled, Pallor, Diaphoresis, Pruritis, Rash, Change in Color, Change in Hair/Nails, Urticaria Neurological: Reports: No Symptoms Psychiatric: Reports: No Symptoms Hematologic/Lymphatic: Reports: No Symptoms Immunologic: Reports: No Symptoms ED EXAM, GENERAL - Physical Exam Exam: See Below Exam Limited By: No Limitations General Appearance: Alert, WD/WN, Mild Distress Eye Exam: Bilateral Eye: Normal Inspection, PERRL Ears: Normal External Exam, Normal Canal, Hearing Grossly Normal, Normal TMs Throat/Mouth: Normal Inspection, Normal Lips, Normal Teeth, Normal Gums, Normal Oropharynx, Normal Voice, No Airway Compromise Head: Atraumatic, Normocephalic Neck: Normal Inspection, Supple, Non-Tender, Full Range of Motion. No: Lymphadenopathy (R), Lymphadenopathy (L) Respiratory/Chest: No Respiratory Distress, Lungs Clear, Normal Breath Sounds, No Accessory Muscle Use, Chest Non-Tender. No: Crackles, Rales, Rhonchi, Wheezing, Stridor, Retractions, Splinting Cardiovascular: No Murmur, No Rub, Tachycardia (rate of 100 to 120bpm, regular), Other (2+ edema bilateral feet/ankles) Peripheral Pulses: 4+: Radial (L), Radial (R), Dorsalis Pedis (L), Dorsalis Pedis (R) GI/Abdominal: Normal Bowel Sounds, Distended (status post 07/23/2021), Tender (to lower abdomen around incision). No: Guarding, Rigid, Rebound (Female) Exam: Uterine Tenderness, Vaginal Bleeding (red to dark red), Vaginal Discharge Extremities: Normal Inspection, Normal Range of Motion, Non-Tender, No Pedal Edema, Normal Capillary Refill Neurological: Alert, Oriented, CN II-XII Intact, Normal Cognition, Normal Reflexes, No Motor/Sensory Deficits Psychiatric: Normal Affect, Normal Mood Skin Exam: Warm, Dry, Intact, Normal Color, No Rash, Other (incision intact, no drainge noted. Erythema to left 1/2 incision) Lymphatic: No Adenopathy Course - Vital Signs Last Recorded V/S: Last Vital Signs Temp 36.4 C 07/25/21 20:10 Pulse 107 H 07/25/21 20:10 Resp 16 07/25/21 20:10 BP 111/67 07/25/21 20:10 Pulse Ox 98 07/25/21 20:10 - Orders/Labs/Meds Orders: Active Orders 24 hr Category Date Time Status Chest 2V [CR] Stat Exams 07/25/21 18:33 Taken CULTURE URINE [RM] Stat Lab 07/25/21 20:30 Received Labs: Laboratory Tests 07/25/21 07/25/21 07/25/21 Range/Units 18:25 18:25 18:25 WBC 18.3 H (4.5-11.0) K/uL RBC 2.99 L (3.30-5.50) M/uL Hgb 8.5 L (12.0-15.0) g/dL Hct 26.4 L (36.0-48.0) % MCV 88 (80-98) fL MCH 28 (27-31) pg MCHC 32 (32-36) % Plt Count 280 (150-400) K/uL Neut % (Auto) 76.2 H (36-66) % Lymph % (Auto) 14.3 L (24-44) % [place] % (Auto) 8.7 H (2-6) % Eos % (Auto) 0.6 L (2-4) % Baso % (Auto) 0.2 (0-1) % Sodium 135 L (140-148) mmol/L Potassium 4.0 (3.6-5.2) mmol/L Chloride 100 (100-108) mmol/L Carbon Dioxide 26 (21-32) mmol/L Anion Gap 13.0 (5.0-14.0) mmol/L BUN 11 (7-18) mg/dL Creatinine 1.0 (0.6-1.0) mg/dL Est Cr Clr Drug Dosing 73.00 mL/min Estimated GFR (MDRD) > 60 (>60) Glucose 84 (74-106) mg/dL Lactic Acid 0.5 (0.4-2.0) mmol/L Calcium 8.8 (8.5-10.1) mg/dL Total Bilirubin 0.1 L D (0.2-1.0) mg/dL AST 22 (15-37) U/L ALT 23 (12-78) U/L Alkaline Phosphatase 145 H (46-116) U/L Total Protein 6.4 (6.4-8.2) g/dL Albumin 2.0 L (3.4-5.0) g/dL Globulin 4.4 H (2.3-3.5) g/dL Albumin/Globulin Ratio 0.5 L (1.2-2.2) Procalcitonin ng/mL Urine Color (YELLOW) Urine Appearance (CLEAR) Urine pH (5.0-8.0) Ur Specific [place] (1.008-1.030) Urine Protein (NEGATIVE) mg/dL Urine Glucose (UA) (NEGATIVE) mg/dL Urine Ketones (NEGATIVE) mg/dL Urine Occult Blood (NEGATIVE) Urine Nitrite (NEGATIVE) Urine Bilirubin (NEGATIVE) Urine Urobilinogen (0.2-1.0) EU/dL Ur Leukocyte Esterase (NEGATIVE) Urine RBC (0-5) Urine WBC (0-5) Ur Epithelial Cells Amorphous Sediment Urine Bacteria Urine Mucus 07/25/21 07/25/21 Range/Units 18:25 18:42 WBC (4.5-11.0) K/uL RBC (3.30-5.50) M/uL Hgb (12.0-15.0) g/dL Hct (36.0-48.0) % MCV (80-98) fL MCH (27-31) pg MCHC (32-36) % Plt Count (150-400) K/uL Neut % (Auto) (36-66) % Lymph % (Auto) (24-44) % [place] % (Auto) (2-6) % Eos % (Auto) (2-4) % Baso % (Auto) (0-1) % Sodium (140-148) mmol/L Potassium (3.6-5.2) mmol/L Chloride (100-108) mmol/L Carbon Dioxide (21-32) mmol/L Anion Gap (5.0-14.0) mmol/L BUN (7-18) mg/dL Creatinine (0.6-1.0) mg/dL Est Cr Clr Drug Dosing mL/min Estimated GFR (MDRD) (>60) Glucose (74-106) mg/dL Lactic Acid (0.4-2.0) mmol/L Calcium (8.5-10.1) mg/dL Total Bilirubin (0.2-1.0) mg/dL AST (15-37) U/L ALT (12-78) U/L Alkaline Phosphatase (46-116) U/L Total Protein (6.4-8.2) g/dL Albumin (3.4-5.0) g/dL Globulin (2.3-3.5) g/dL Albumin/Globulin Ratio (1.2-2.2) Procalcitonin 0.11 ng/mL Urine Color Yellow (YELLOW) Urine Appearance Cloudy A (CLEAR) Urine pH 6.0 (5.0-8.0) Ur Specific [place] 1.020 (1.008-1.030) Urine Protein 100 H (NEGATIVE) mg/dL Urine Glucose (UA) Negative (NEGATIVE) mg/dL Urine Ketones Trace H (NEGATIVE) mg/dL Urine Occult Blood Large H (NEGATIVE) Urine Nitrite Negative (NEGATIVE) Urine Bilirubin Negative (NEGATIVE) Urine Urobilinogen 0.2 (0.2-1.0) EU/dL Ur Leukocyte Esterase Large H (NEGATIVE) Urine RBC 75-100 H (0-5) Urine WBC Semi-packed H (0-5) Ur Epithelial Cells Few Amorphous Sediment Not seen Urine Bacteria Many Urine Mucus Not seen Meds: Medications Discontinued Medications Generic Name Dose Route Start Last Admin Trade Name Freq PRN Reason Stop Dose Admin Sodium Chloride 80 mls @ 3 mls/sec 07/25/21 19:45 07/25/21 19:57 Normal Saline IV 3 mls/sec ASDIRECTED JEOVANNY Administration Ceftriaxone Sodium 2 gm/ 50 mls @ 100 mls/hr 07/25/21 21:41 07/25/21 21:46 Sodium Chloride IV 07/25/21 22:10 100 mls/hr ONETIME ONE Administration Ibuprofen 800 mg 07/25/21 18:33 07/25/21 18:40 Ibuprofen 800 Mg Tab PO 07/25/21 18:34 800 mg ONETIME ONE Administration Iopamidol 100 ml 07/25/21 19:45 07/25/21 19:57 Iopamidol 612 Mg/Ml 100 Ml Bottle IV 100 ml . DIRECTED JEOVANNY Administration Oxycodone/Acetaminophen 1 tab 07/25/21 20:02 07/25/21 20:08 Acetaminophen/Oxycodone 325-5 Mg Tab PO 1 tab ONETIME PRN Administration Abdominal Pain - Re-Assessments/Exams Free Text/Narrative Re-Assessment/Exam: 07/25/21 19:10 Discussed lab work with patient, we will complete CT abdomen and pelvis with IV contrast. 07/25/21 20:08 Patient complains of increased pain, Percocet ordered. 07/25/21 21:[address] of abdomen and pelvis, lab work and vital signs with OB drafter (cad) electronic. Advised IV rocephin 2gm IV, augmentin PO BID for 14 days with follow up Wednesday July 28, 2021. Patient notified. All her questions were answered. She is in agreement with plan. Departure - Departure Time of Disposition: 21:43 Disposition: Home, Self-Care 01 Condition: Good Clinical Impression: Urinary tract infection, Constipation, Status post , Fluid collection at surgical site - Discharge Information Referrals: Guerita Muñoz CNM [Primary Care Provider] - Forms: ED Department Discharge Additional Instructions: You have been evaluated and treated for constipation, UTI, fluid collection at site of , status post two days ago. Drink plenty of water to stay hydrated. Take percocet as directed for pain. Take miralax once capful twice a day for constipation. Continue use of oral pill stool softener as directed per OB. You were given rocephin 2 grams IV in ER. Take augmenting 1 pill twice a day for 14 days for concerns of infection. Continue to breast feed on demand and pump as needed. Rest when your baby rests. Follow up with OB at the time of your baby's next exam on 07/28/2021. If you develop severe pain, worsening of fever, worsening of current status then return to the emergency room. Sepsis Event Note (ED) - Evaluation Sepsis Screening Result: No Definite Risk - Focused Exam Vital Signs: Vital Signs Temp Pulse Resp BP Pulse Ox 07/25/21 20:10 36.4 C 107 H 16 111/67 98 07/25/21 17:46 36.7 C 120 H 20 125/77 98 07/25/21 17:42 36.7 C 120 H 20 125/77 98 - My Orders Last 24 Hours: My Active Orders 07/25/21 18:33 Chest 2V [CR] Stat 07/25/21 20:30 CULTURE URINE [RM] Stat - Assessment/Plan Last 24 Hours: My Active Orders 07/25/21 18:33 Chest 2V [CR] Stat 07/25/21 20:30 CULTURE URINE [RM] Stat Assessment:: Urinary tract infection, Constipation, Status post , Fluid collection at surgical site Plan: Patient evaluated and treated for constipation, UTI, fluid collection at site of , status post two days ago. Drink plenty of water to stay hydrated. Take percocet as directed for pain. Take miralax once capful twice a day for constipation. Continue use of oral pill stool softener as directed per OB. You were given rocephin 2 grams IV in ER. Take augmenting 1 pill twice a day for 14 days for concerns of infection. Continue to breast feed on demand and pump as needed. Rest when your baby rests. Follow up with OB at the time of your baby's next exam on 07/28/2021. If you develop severe pain, worsening of fever, worsening of current status then return to the emergency room.
[2021-07-25] MEDS ORDERED: Ibuprofen 800 MG Tab PO ONE (18:33)
[2021-07-25] MEDS ORDERED: Sodium Chloride 0.9% 80 ML IV SCH (19:45)
[2021-07-25] MEDS ORDERED: Iopamidol 612 MG/ML 100 ML Bottle IV SCH (19:45)
[2021-07-25] MEDS ORDERED: Acetaminophen/oxyCODONE 325-5 MG Tab PO PRN (20:02)
[2021-07-25 20:10] VITALS: BP 111/67; PULSE 107
--- NOTE | 2021-07-25 21:10 | CRLCT ---
For Patients: As a result of the Century Cures Act, medical imaging exams and procedure reports are released immediately into your electronic medical record. You may view this report before your referring provider. If you have questions, please contact your health care provider. Indication: Abdominal pain and fever. on 07/23/2021. Comparison: 05/21/2017 Technique: CT of the abdomen and pelvis with intravenous contrast. 100 cc of Isovue 300 administered intravenously. Findings: An enlarged uterus is seen. A crescent-shaped fluid collection in the abdominal wall is seen in the lower abdomen, likely along the incision containing an air-fluid level. This measures approximately 2.1 cm in AP dimension, and 9.8 cm in transverse dimension. The craniocaudal dimension is 6.3 cm. A small amount of free fluid and small to moderate amount of stranding is seen within the pelvis. It is difficult to confidently identify the ovaries but the hip appear to be likely present anteriorly on image 34, series 3 with a symmetric appearance. Changes related to previous appendectomy are seen. Significant distention of the ascending colon measuring up to 8.7 cm with large amount of mottled debris compatible with stool. Air-fluid levels are seen with stool in the transverse colon. [id number] amount of stool in the descending colon. The sigmoid colon and rectum are relatively decompressed. The urinary bladder appears unremarkable. The spleen measures mildly enlarged. The liver is also mildly enlarged, with patent portal and hepatic veins. The gallbladder is decompressed. Adrenal glands are unremarkable. The kidneys enhance symmetrically without hydronephrosis. No evidence of pancreatitis. No abdominal aortic aneurysm. Proximal visceral arteries appear patent. Impression: 1. Air and fluid collection within the abdominal wall along the scar, concerning for infection. 2. Small amount of fluid and small to moderate amount of stranding in the pelvis could represent postoperative change, however infection not excluded. 3. Enlarged uterus. 4. Significant distention of the ascending colon with high stool burden. 5. Ovaries are not well seen or evaluated but appear normal in size and symmetric. Please note that all CT scans at this facility use dose modulation, iterative reconstruction, and/or weight-based dosing when appropriate to reduce radiation dose to as low as reasonably achievable. Dictated by Paulo Stevens MD @ 07/25/2021 9:07:42 PM (Electronically Signed)
[2021-07-25] MEDS ORDERED: cefTRIAXone 2 GM in Sodium Chloride 0.9% 50 ML IV ONE (21:41)
--- NOTE | 2021-07-28 09:20 | CR ---
CHEST: 2 view CLINICAL HISTORY:Cough COMPARISON:None FINDINGS: The heart size, pulmonary vascularity and hilar structures are normal. No infiltrate effusion or pneumothorax is seen. IMPRESSION: No acute cardiopulmonary process.
== END 2021-07-25 22:30 | disposition home or self-care (01) ==
LOC: JP.ED 17:15
DX: N39.0 Urinary tract infection, site not specified (principal); K59.00 Constipation, unspecified; L76.34 Postprocedural seroma of skin and subcutaneous tissue following other procedure; Z87.59 Personal history of other complications of pregnancy, childbirth and the puerperium; Z88.1 Allergy status to other antibiotic agents; Z72.0 Tobacco use
CPT/HCPCS: 36415; 71046; 74177; 80053; 81001; 83605; 84145; 85025; 87086; 96365; 99284; A9270; J0696; Q9967

== ENCOUNTER 2021-07-29 08:36 | Emergency (ER) | payer MEDICAID ==
[2021-07-29 08:51] VITALS: BP 131/79; PULSE 88
--- NOTE | 2021-07-29 09:46 | EDM.PDOC ---
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 he has had some fevers. She is on augmentin Onset: Gradual, Other (pt was seen in the ER on Wednesday. ) Duration: Day(s): Location: Reports: Abdomen Associated Symptoms: Reports: Fever/Chills Pelvic Pain Score (Numeric/FACES): 4 - Related Data Allergies Allergy/AdvReac Type Severity Reaction Status Date / Time neomycin Allergy Swelling Verified 07/29/21 08:53 Home Meds: Home Meds Omeprazole 20 mg PO ACBREAKFAST 07/21/21 [History] Docusate Sodium [Colace] 100 mg PO BID PRN cap 07/25/21 [Rx] Ibuprofen [Motrin] 800 mg PO Q8H PRN tablet 07/25/21 [Rx] Lanolin [Lansinoh HPA] 0 gm TOP ASDIRECTED PRN tube 07/25/21 [Rx] Vit with Ca/FA/Iron [ Plus Iron] 1 each PO DAILY tablet 07/25/21 [Rx] Acetaminophen/HYDROcodone [HYDROcodone-Acetaminophen 5-325 MG *] 1 tab PO Q6H PRN 07/29/21 [History] Amoxicillin/Potassium Clav [Amox-Clav 875-125 mg Tablet] 1 tab PO BID 07/29/21 [History] valACYclovir HCl [Valacyclovir] 1,000 mg PO DAILY 07/29/21 [History] Past Medical History HEENT History: Reports: Impaired Vision Cardiovascular History: Reports: Heart Murmur Gastrointestinal History: Reports: GERD Genitourinary History: Reports: UTI, Recurrent 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: , 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 Musculoskeletal History: Reports: Other (See Below) Other Musculoskeletal History: 3 broken bones in right foot Psychiatric History: Reports: Anxiety, Depression, Panic Attack Hematologic History: Reports: None Dermatologic History: Reports: Other (See Below) Other Dermatologic History: patches on upper arms of rash - Infectious Disease History Infectious Disease History: Reports: Chicken Pox, Novel Coronavirus - Past Surgical History Head Surgeries/Procedures: Reports: None HEENT Surgical History: Reports: Oral Surgery Cardiovascular Surgical History: Reports: None GI Surgical History: Reports: Appendectomy Female Surgical History: Reports: None Musculoskeletal Surgical History: Reports: None Other Musculoskeletal Surgeries/Procedures:: broken bones in foot Dermatological Surgical History: Reports: None Social & Family History - Family History Family Medical History: No Pertinent Family History - Tobacco Use Tobacco Use Status *Q: Current Every Day Tobacco User Years of Tobacco use: 5 Packs/Tins Daily: 0.3 - Caffeine Use Caffeine Use: Reports: None - Recreational Drug Use Recreational Drug Use: No ED ROS GENERAL - Review of Systems Review Of Systems: See Below Constitutional: Reports: Fever HEENT: Reports: No Symptoms Respiratory: Reports: No Symptoms Cardiovascular: Reports: No Symptoms Endocrine: Reports: No Symptoms GI/Abdominal: Reports: Other (pt is having alot of serosangius draiange from the wound There is slight redness around the wound. ) : Reports: No Symptoms Musculoskeletal: Reports: No Symptoms Skin: Reports: No Symptoms Neurological: Reports: No Symptoms Psychiatric: Reports: Anxiety ED EXAM - Physical Exam Exam: See Below Text/Narrative:: pt is here very anxious about the drainage from the wound Exam Limited By: No Limitations General Appearance: Alert, Anxious GI/Abdominal Exam: Other (pt had a c section 1 week ago. She is having serosangious drainage from the wound there is redness around the wound) Rectal Exam: Deferred Back Exam: Normal Inspection Extremities: Normal Inspection Course - Vital Signs Last Recorded V/S: Last Vital Signs Temp 36.4 C 07/29/21 08:57 Pulse 88 07/29/21 08:57 Resp 16 07/29/21 08:57 BP 131/79 07/29/21 08:57 Pulse Ox 97 07/29/21 08:57 - Re-Assessments/Exams Free Text/Narrative Re-Assessment/Exam: 07/29/21 09:50 Dr Torres was called and he will see her in wound clinic on . She is to continue the augmentin. Departure - Departure Time of Disposition: 09:44 Disposition: Home, Self-Care 01 Condition: Fair Clinical Impression: Wound drainage, Wound infection - Discharge Information Instructions: Wound Infection, [id number] Referrals: Guerita Muñoz CNM [Primary Care Provider] - Forms: ED Department Discharge Care Plan Goals: continue to dress regularly, continue augmentin, appt with Dr Melissa nieto in wound clinic--appt time
== END 2021-07-29 09:54 | disposition home or self-care (01) ==
LOC: JP.ED 08:36
DX: O86.00 Infection of obstetric surgical wound, unspecified (principal); K21.9 Gastro-esophageal reflux disease without esophagitis; Z72.0 Tobacco use; Z88.1 Allergy status to other antibiotic agents; Z79.899 Other long term (current) drug therapy
CPT/HCPCS: 99282; 99283

== ENCOUNTER 2023-03-26 10:51 | Emergency (ER) | payer MEDICAID ==
[2023-03-26 11:03] VITALS: PULSE 115
[2023-03-26] MEDS ORDERED: Ondansetron 4 MG/2 ML SDV IVPUSH ONE (11:23)
[2023-03-26] MEDS ORDERED: Ketorolac 30 MG/ML SDV IVPUSH ONE (11:23)
[2023-03-26] MEDS ORDERED: Sodium Chloride 0.9% 1,000 ML IV SCH (11:30)
[2023-03-26 12:50] VITALS: BP 109/66
== END 2023-03-26 14:05 | disposition home or self-care (01) ==
LOC: JP.ED 10:51
DX: M79.10 Myalgia, unspecified site (principal); F17.210 Nicotine dependence, cigarettes, uncomplicated; Z86.16 Personal history of COVID-19; Z88.1 Allergy status to other antibiotic agents
CPT/HCPCS: 36415; 74176; 82150; 83605; 83690; 84145; 84703; 87635; 96374; 96375; 99284; J1885; J2405; J7030; U0002

== ENCOUNTER 2024-02-11 02:03 | Emergency (ER) | payer MEDICAID ==
[2024-02-11] MEDS: Ondansetron 4 MG/2 ML SDV IVPUSH ONE (03:04)
[2024-02-11 03:32] LABS: BASOPHILS ABSOLUTE AUTO 0.04 K/uL (0.00-0.10); BASOPHILS PERCENT AUTO 0.2 % (0.1-1.3); EOSINOPHILS PERCENT AUTO 0.1 % (0.0-5.4); HEMATOCRIT 42.6 % (34.3-46.0); HEMOGLOBIN 14.4 g/dL (11.2-15.5); IMMATURE GRAN ABSOLUTE AUTO 0.12 K/uL (0.00-0.23); IMMATURE GRAN PERCENT AUTO 0.7 % (0.0-0.7); LYMPHOCYTES PERCENT AUTO 9.2 % (11.4-47.7); MEAN CORPUSCULAR HGB CONC 33.8 g/dL (31.6-35.5); MEAN CORPUSCULAR VOLUME 88.8 fL (81.4-99.0); MONOCYTES ABSOLUTE AUTO 0.84 K/uL (0.20-0.90); MONOCYTES PERCENT AUTO 5.1 % (3.3-12.6); NEUTROPHILS ABSOLUTE AUTO 13.83 K/uL (1.0-7.6); NEUTROPHILS PERCENT AUTO 84.7 % (40.0-78.1); PLATELET COUNT,PLT 250 K/uL (130-375); WHITE BLOOD CELL COUNT,WBC 16.4 K/uL (3.2-11.0)
[2024-02-11 03:33] LABS: EOSINOPHILS ABSOLUTE AUTO 0.02 K/uL (0.00-0.40)
[2024-02-11 03:36] LABS: BLOOD UREA NITROGEN,BUN 25 mg/dL (7-18); CALCIUM 9.6 mg/dL (8.5-10.1); CARBON DIOXIDE,CO2 25 mmol/L (21-32); CHLORIDE,CL 97 mmol/L (100-108); CREATININE 1.1 mg/dL (0.6-1.0); ESTIMATED GFR 72 mL/min (>60); GLUCOSE RANDOM 126 mg/dL (74-106); SODIUM,NA 135 mmol/L (140-148)
[2024-02-11 04:01] VITALS: PULSE 86
[2024-02-11] MEDS: Sodium Chloride 0.9% 1,000 ML IV SCH ×2 (05:29)
[2024-02-11 05:34] VITALS: BP 109/73
== END 2024-02-11 05:50 | disposition home or self-care (01) ==
LOC: JP.ED 02:03
DX: O21.2 Late vomiting of pregnancy (principal); O99.612 Diseases of the digestive system complicating pregnancy, second trimester; K52.9 Noninfective gastroenteritis and colitis, unspecified; R19.7 Diarrhea, unspecified; Z3A.27 27 weeks gestation of pregnancy; Z86.16 Personal history of COVID-19; Z88.1 Allergy status to other antibiotic agents
CPT/HCPCS: 36415; 80048; 85025; 96361; 96374; 99284; J2405; J7030

== ENCOUNTER 2024-10-27 11:44 | Emergency (ER) | payer MEDICAID ==
[2024-10-27 12:10] VITALS: BP 114/75; PULSE 88
[2024-10-27] MEDS: Bacitracin Oint 1 GM U/D Packet TOP ONE (13:03)
[2024-10-27] MEDS: Lidocaine 1% 5 ML VIAL INJECT ONE (13:03)
== END 2024-10-27 13:12 | disposition home or self-care (01) ==
LOC: JP.ED 11:44
DX: S51.012A Laceration without foreign body of left elbow, initial encounter (principal); F17.210 Nicotine dependence, cigarettes, uncomplicated; Z90.49 Acquired absence of other specified parts of digestive tract; Z86.16 Personal history of COVID-19; Z88.8 Allergy status to other drugs, medicaments and biological substances; W23.1XXA Caught, crushed, jammed, or pinched between stationary objects, initial encounter
CPT/HCPCS: 12002; 12013; 99282; 99283